=== PATIENT | male | born 1935 | race Caucasian/White ===

== ENCOUNTER → 2018-07-12 | Outpatient (CLI) | payer MEDICARE, OTHER ==
[~2018-07-12] MED LIST: ASPI81EC; CEPH250A PO; GLIP5ER; HYDACE5 PO; HYDURE500 PO; LEVSOD150 PO; LEVSOD25; LISI5 PO; NAPR220 PO; RXCEPH500 PO; TAMS.4ER; TAMS.4ER PO; WARF5 PO
[2018-07-12 18:37] LABS: BASOPHILS ABSOLUTE AUTO 0.06 K/mm3 (0.00-0.23); BASOPHILS PERCENT AUTO 1 % (0-2); EOSINOPHILS ABSOLUTE AUTO 0.15 K/mm3 (0.00-0.68); EOSINOPHILS PERCENT AUTO 2 % (0-6); Hematocrit 48.1 % (37.0-53.0); IMMATURE GRAN ABSOLUTE AUTO 0.05 K/mm3 (0.00-0.10); IMMATURE GRAN PERCENT AUTO 1 % (0-1); LYMPHOCYTES ABSOLUTE AUTO 1.74 K/mm3 (0.84-5.20); LYMPHOCYTES PERCENT AUTO 22 % (21-46); MONOCYTES ABSOLUTE AUTO 0.62 K/mm3 (0.16-1.47); MONOCYTES PERCENT AUTO 8 % (4-13); Mean Corpuscular HGB Conc 33.3 g/dL (31.5-36.5); Mean Corpuscular Volume 111 fL (80-100); Mean Platelet Volume 10.9 fL (9.1-12.4); NEUTROPHILS ABSOLUTE AUTO 5.19 K/mm3 (1.96-9.15); NEUTROPHILS PERCENT AUTO 67 % (41-73); Platelet Count 379 K/mm3 (150-400); RDW Coefficient Variation 14.1 % (11.7-14.2); RDW Standard Deviation 57.6 fL (35.1-46.3); Red Blood Cell Count 4.33 M/mm3 (4.30-5.90); White Blood Cell Count 7.81 K/mm3 (4.00-11.30)
== END | disposition home or self-care (01) ==
LOC: LAB EV 18:32 → LAB SHORT 18:32
PROVIDERS: Physician Assistant
DX: K92.2 Gastrointestinal hemorrhage, unspecified (principal)
CPT/HCPCS: 85025

== ENCOUNTER 2018-08-27 10:58 | Day surgery (SDC) | payer MEDICARE, OTHER ==
[~2018-08-27] VITALS: Ht 188 cm; Wt 96.4 kg
[~2018-08-27 10:58] MED LIST changes: +DORZOPSO; +DORZOPSO BOTHEYES; +Synthroid175 MCG PO; +TIMOPTIC 0.5%1 EACH BOTHEYES; +Xalatan2.5 ML BOTHEYES
[2018-08-27] MEDS ORDERED: WARF4 PO (11:37)
== END 2018-08-27 13:12 | disposition home or self-care (01) ==
LOC: ORSCSDS 10:58
PROVIDERS: Surgery
PROC: 0DJD8ZZ Inspection of Lower Intestinal Tract, Via Natural or Artificial Opening Endoscopic (ICD-10-PCS; principal; 2018-08-27 12:00)
DX: K62.5 Hemorrhage of anus and rectum (principal); K21.9 Gastro-esophageal reflux disease without esophagitis; K64.8 Other hemorrhoids; K57.30 Diverticulosis of large intestine without perforation or abscess without bleeding; E11.9 Type 2 diabetes mellitus without complications; E03.9 Hypothyroidism, unspecified; H40.9 Unspecified glaucoma; D64.9 Anemia, unspecified; Z86.718 Personal history of other venous thrombosis and embolism; Z87.891 Personal history of nicotine dependence; Z79.01 Long term (current) use of anticoagulants; Z79.899 Other long term (current) drug therapy
CPT/HCPCS: J7120

== ENCOUNTER 2018-09-09 03:19 | Day surgery (SDC) | payer MEDICARE, OTHER ==
[~2018-09-09] VITALS: Ht 185.4 cm; Wt 100.0 kg
[~2018-09-09 03:19] MED LIST changes: +WARF4 PO
[2018-09-09 06:35] LABS: BASOPHILS ABSOLUTE AUTO 0.08 K/mm3 (0.00-0.23); BASOPHILS PERCENT AUTO 1 % (0-2); EOSINOPHILS ABSOLUTE AUTO 0.28 K/mm3 (0.00-0.68); EOSINOPHILS PERCENT AUTO 3 % (0-6); Hematocrit 47.6 % (37.0-53.0); Hemoglobin 14.9 g/dL (13.5-17.5); IMMATURE GRAN ABSOLUTE AUTO 0.16 K/mm3 (0.00-0.10); IMMATURE GRAN PERCENT AUTO 2 % (0-1); LYMPHOCYTES ABSOLUTE AUTO 1.39 K/mm3 (0.84-5.20); LYMPHOCYTES PERCENT AUTO 17 % (21-46); MONOCYTES ABSOLUTE AUTO 0.84 K/mm3 (0.16-1.47); MONOCYTES PERCENT AUTO 10 % (4-13); Mean Corpuscular HGB 35.2 pg (26.0-34.0); Mean Corpuscular HGB Conc 31.3 g/dL (31.5-36.5); Mean Corpuscular Volume 113 fL (80-100); Mean Platelet Volume 10.8 fL (9.1-12.4); NEUTROPHILS ABSOLUTE AUTO 5.54 K/mm3 (1.96-9.15); NEUTROPHILS PERCENT AUTO 67 % (41-73); Platelet Count 467 K/mm3 (150-400); RDW Coefficient Variation 14.2 % (11.7-14.2); RDW Standard Deviation 58.6 fL (35.1-46.3); Red Blood Cell Count 4.23 M/mm3 (4.30-5.90); White Blood Cell Count 8.29 K/mm3 (4.00-11.30)
[2018-09-09 06:51] LABS: International Normalized Ratio 2.48; Prothrombin Time Results 24.2 Sec (9.7-11.5)
[2018-09-09 06:52] LABS: Bun/Creatinine Ratio 16.5 (12.0-20.0); Calcium, Blood 8.8 mg/dL (8.5-10.1); Creatinine, Blood 1.39 mg/dL (0.60-1.20); Potassium, Blood 4.2 mmol/L (3.5-5.5)
--- NOTE | 2018-09-09 09:51 | NUR ---
PT AWAKE, ALERT, AT BEDSIDE. ASKING APPROPRIATE QUESTIONS. MD CAME TO SEE PATIENT AFTER PROCEDURE IN RECOVERY AREA. PT DENIES PAIN OR DISCOMFORT. ACCESS SITE BEHIND RIGHT KNEE CDI. NO BLEEDING OR SWELLING NOTED.
--- NOTE | 2018-09-09 09:56 | NUR ---
CORRECTION: ACCESS SITE POSTERIOR LEFT KNEE
--- NOTE | 2018-09-09 11:07 | NUR ---
PT DRESSED, NO BLEED SEEN BEHIND KNEES BILAT. IV DC'D TIP INTACT, PT CHOOSES TO AMB OUT WITH W SON DRIVING PT HOME. DC INSTRUCTIONS GIVEN, PT TO CALL OFFICE IF THEY NEED APPOINTMENT
== END 2018-09-09 11:31 | disposition home or self-care (01) ==
LOC: MHTC 03:19
PROVIDERS: Radiology Diagnostic Radiology
DX: I82.409 Acute embolism and thrombosis of unspecified deep veins of unspecified lower extremity (principal)
CPT/HCPCS: 36005; 75820; 75822; 75825; 76937; 80048; 85025; 85610; 99152; 99153; C1769; C1887; C1894; J1644; J2250; J3010; J7030; Q9967

== ENCOUNTER 2019-08-10 06:57 | Day surgery (SDC) | payer MEDICARE, OTHER ==
[~2019-08-10] VITALS: Ht 182.9 cm; Wt 96.1 kg
== END 2019-08-10 09:12 | disposition home or self-care (01) ==
LOC: ORSCSDS 06:57
PROVIDERS: Ophthalmology
PROC: 08RJ3JZ Replacement of Right Lens with Synthetic Substitute, Percutaneous Approach (ICD-10-PCS; principal; 2019-08-10 08:30)
DX: H25.11 Age-related nuclear cataract, right eye (principal); I48.91 Unspecified atrial fibrillation; E11.36 Type 2 diabetes mellitus with diabetic cataract; Z79.01 Long term (current) use of anticoagulants; Z79.899 Other long term (current) drug therapy
CPT/HCPCS: 82947; J2001; J2250; J3010; J3301; J7040; V2632

== ENCOUNTER 2019-08-31 07:57 | Day surgery (SDC) | payer MEDICARE, OTHER ==
[~2019-08-31] VITALS: Ht 182.9 cm; Wt 97.2 kg
--- NOTE | 2019-08-31 09:41 | NUR ---
08/31/19 0941 Wil Rivera EYE BED, PILLOW UNDER KNEES, RAILS UP.
== END 2019-08-31 10:15 | disposition home or self-care (01) ==
LOC: ORSCSDS 07:57
PROVIDERS: Ophthalmology
PROC: 08RK3JZ Replacement of Left Lens with Synthetic Substitute, Percutaneous Approach (ICD-10-PCS; principal; 2019-08-31 09:30)
DX: H25.12 Age-related nuclear cataract, left eye (principal); E11.36 Type 2 diabetes mellitus with diabetic cataract; G51.0 Bell's palsy; H40.9 Unspecified glaucoma; Z79.899 Other long term (current) drug therapy
CPT/HCPCS: 82947; J2001; J2250; J3301; V2632

== ENCOUNTER 2020-09-26 14:04 | Observation (INO) | payer MEDICARE, OTHER ==
[~2020-09-26] VITALS: Ht 182.9 cm; Wt 92.3 kg
[~2020-09-26 14:04] MED LIST changes: -Synthroid175 MCG PO; -TIMOPTIC 0.5%1 EACH BOTHEYES
[2020-09-26 14:46] LABS: BASOPHILS ABSOLUTE AUTO 0.07 K/mm3 (0.00-0.23); BASOPHILS PERCENT AUTO 1 % (0-2); EOSINOPHILS ABSOLUTE AUTO 0.16 K/mm3 (0.00-0.68); EOSINOPHILS PERCENT AUTO 2 % (0-6); Hematocrit 54.6 % (37.0-53.0); Hemoglobin 17.8 g/dL (13.5-17.5); IMMATURE GRAN ABSOLUTE AUTO 0.07 K/mm3 (0.00-0.10); IMMATURE GRAN PERCENT AUTO 1 % (0-1); LYMPHOCYTES ABSOLUTE AUTO 1.82 K/mm3 (0.84-5.20); LYMPHOCYTES PERCENT AUTO 18 % (21-46); MONOCYTES ABSOLUTE AUTO 0.28 K/mm3 (0.16-1.47); MONOCYTES PERCENT AUTO 3 % (4-13); Mean Corpuscular HGB 35.5 pg (26.0-34.0); Mean Corpuscular HGB Conc 32.6 g/dL (31.5-36.5); Mean Corpuscular Volume 109 fL (80-100); Mean Platelet Volume 11.8 fL (9.1-12.4); NEUTROPHILS ABSOLUTE AUTO 7.69 K/mm3 (1.96-9.15); NEUTROPHILS PERCENT AUTO 76 % (41-73); Platelet Count 513 K/mm3 (150-400); RDW Coefficient Variation 14.7 % (11.7-14.2); RDW Standard Deviation 60.1 fL (35.1-46.3); Red Blood Cell Count 5.01 M/mm3 (4.30-5.90); White Blood Cell Count 10.09 K/mm3 (4.00-11.30)
[2020-09-26] MEDS ORDERED: TAMS.4ER PO (16:03)
[2020-09-26] MEDS ORDERED: BETIMOL5 ML BOTHEYES (16:03)
[2020-09-26] MEDS ORDERED: WARF4 PO (16:03)
[2020-09-26] MEDS ORDERED: EUTHYROX125 MCG PO (16:04)
[2020-09-26] MEDS ORDERED: DORZOLAMIDE 2%10 M3 BOTHEYES (16:04)
[2020-09-26] MEDS ORDERED: HYDURE500 PO (16:06)
[2020-09-26] MEDS ORDERED: Hydroxyurea500 MG PO (16:06)
[2020-09-26] MEDS ORDERED: LATA.005SO BOTHEYES (16:07)
[2020-09-26 16:11] LABS: Albumin, Blood 3.6 g/dL (3.4-5.0); Albumin/Globulin Ratio 0.9 (0.8-1.8); Bilirubin, Total 0.9 mg/dL (0.1-1.0); Bun/Creatinine Ratio 18.6 (12.0-20.0); Calcium, Blood 8.3 mg/dL (8.5-10.1); Creatinine, Blood 1.45 mg/dL (0.60-1.20); Globulin, Blood 4.1 g/dL (2.2-4.0); Potassium, Blood 4.6 mmol/L (3.5-5.5); Total Protein, Blood 7.7 g/dL (6.4-8.2)
[2020-09-26 16:37] LABS: International Normalized Ratio 2.12; Prothrombin Time Results 21.7 Sec (9.7-11.5)
[2020-09-26 17:07] LABS: Source, Urine Clean Catch
[2020-09-26 17:25] LABS: Appearance, Urine Clear (Clear); Bilirubin, Urine Neg (Neg); Blood, Urine Neg (Neg); Color, Urine Yellow (P-Yellow); Glucose Qualitative, Urine Neg (Neg); Ketones, Urine Neg (Neg); Leukocyte Esterase, Urine Neg (Neg); Nitrite, Urine Neg (Neg); Protein, Urine 2+ (Neg); Urobilinogen, Urine NORM (Normal)
[2020-09-26 17:52] LABS: Bacteria Not Seen /hpf; Red Blood Cells, Urine Not Seen /hpf (0-2); Squamous Epithelial Cells Not Seen /hpf (Few); White Blood Cells, Urine Not Seen /hpf (0-5)
--- NOTE | 2020-09-26 18:22 | NUR ---
PT ARRIVED FROM THE ER VIA GURNEY, ABLE TO STAND AND TRANSFER WITH MIN ASSIST TO THE BED, ORIENTED PT TO THE ROOM AND CALL SYSTEM, PT PLEASANT AND COOPERATIVE WITH CARE, NO S/S GI BLEEDING AT THIS TIME
[2020-09-26 20:07] LABS: Hematocrit 48.8 % (37.0-53.0)
[2020-09-27 00:17] LABS: Hemoglobin 15.7 g/dL (13.5-17.5)
[2020-09-27 04:28] LABS: BASOPHILS ABSOLUTE AUTO 0.04 K/mm3 (0.00-0.23); BASOPHILS PERCENT AUTO 0 % (0-2); EOSINOPHILS ABSOLUTE AUTO 0.12 K/mm3 (0.00-0.68); EOSINOPHILS PERCENT AUTO 1 % (0-6); Hematocrit 47.3 % (37.0-53.0); Hemoglobin 15.6 g/dL (13.5-17.5); IMMATURE GRAN ABSOLUTE AUTO 0.12 K/mm3 (0.00-0.10); IMMATURE GRAN PERCENT AUTO 1 % (0-1); LYMPHOCYTES ABSOLUTE AUTO 1.37 K/mm3 (0.84-5.20); LYMPHOCYTES PERCENT AUTO 15 % (21-46); MONOCYTES PERCENT AUTO 8 % (4-13); Mean Corpuscular HGB 35.9 pg (26.0-34.0); Mean Corpuscular Volume 109 fL (80-100); Mean Platelet Volume 11.7 fL (9.1-12.4); NEUTROPHILS ABSOLUTE AUTO 6.54 K/mm3 (1.96-9.15); NEUTROPHILS PERCENT AUTO 74 % (41-73); Platelet Count 362 K/mm3 (150-400); RDW Coefficient Variation 14.7 % (11.7-14.2); RDW Standard Deviation 59.6 fL (35.1-46.3); Red Blood Cell Count 4.34 M/mm3 (4.30-5.90); White Blood Cell Count 8.89 K/mm3 (4.00-11.30)
[2020-09-27 04:42] LABS: Bun/Creatinine Ratio 17.4 (12.0-20.0); Calcium, Blood 7.9 mg/dL (8.5-10.1); Creatinine, Blood 1.32 mg/dL (0.60-1.20); Potassium, Blood 4.5 mmol/L (3.5-5.5)
--- NOTE | 2020-09-27 05:17 | NUR ---
SHIFT SUMMARY: VSS. AFEB. A-FLUTTER W/ PULSE 61. DENIES CHEST PAIN. 02 94% ON RA. REMAINED IN BED. NO SOB AT REST. ABD SOFT, NON-TENDER, NON-DISTENDED. NO BM'S TONIGHT. HAS REMAINED NPO EXCEPT SIPS AND CHIPS TONIGHT. NO N/V. SCHEDULED TO START GO-LYTELY AT 0600. IV ABT INFUSED ORDERED. PT DENIES PAIN. VERY IR[place]QUOIS AND HEARING AID BATTERY HAS . HGB REMAINS STABLE W/ CHECKS. NO DIZZINESS OR LIGHTHEADEDNESS REPORTED AT REST. WCTM.
[2020-09-27 09:37] LABS: Hematocrit 52.1 % (37.0-53.0); Hemoglobin 16.8 g/dL (13.5-17.5)
[2020-09-27 11:29] LABS: Influenza A, PCR NEGATIVE (NEGATIVE); Influenza B, PCR NEGATIVE (NEGATIVE); Resp Syncytial Virus, PCR NEGATIVE (NEGATIVE); SARS-Cov-2 (COVID-19) PCR, MMC NEGATIVE (NEGATIVE)
--- NOTE | 2020-09-27 16:18 | NUR ---
INTO SDS ADMISSION TO UNIT STARTED
--- NOTE | 2020-09-27 16:56 | NUR ---
09/27/20 1656 Rodrigo Méndez PATIENT DETERMINED TO BE ASA APPROPRIATE FOR PROPOFOL SEDATION PRIOR TO START OF PROCEDURE BY DR. DOWNING Bite Block Placed. 3-LEAD EKG REVIEWED WITH PHYSICIAN PRIOR TO START OF PROCEDURE. Patient to ENDO 1 History, Chart, Medications and Allergies reviewed before start of procedure. MONITOR INTACT WITH CONTINUOUS PULSE OXIMETRY AND INTERMITTENT BP. O2 VIA N/C INTACT THROUGHOUT SEDATION/PROCEDURE.
--- NOTE | 2020-09-27 17:22 | NUR ---
SHIFT SUMMARY PT IS AOX4. PT DENIES PAIN, N/V, SOB. PT IS SBA IN ROOM AND DID WELL WITH PT/OT. PT IS CURRENTLY IN HIS EGD AND COLONOSCOPY PROCEDURE. PT HAD ONE EPISODE OF BRADYCARDIA IN THE 45 RANGE, WHICH QUICKLY SELF RESOLVED BACK TO THE 60S PER INSURANCE AGENCY SALES MANAGER. PT'S VISITED TODAY. PT IS IN THE OPERATING ROOM. THIS RN AWAITS PT ARRIVAL BACK TO UNIT.
--- NOTE | 2020-09-28 03:50 | NUR ---
SHIFT SUMMARY: VSS. AFEB. AAOX3. COMMUNICATES WELL W/HEARING AIDS IN PLACE. DENIES PAIN. PT INDEPENDENT IN ROOM. NO REPORTS OF BLACK OR DAMON RED STOOLS TONIGHT. ABD SOFT, NON-TENDER, NON-DISTENDED. BT HYPERACTIVE. DENIES N/V. IV ABT INFUSED PER ORDERS. NO ACUTE OVERNIGHT EVENTS.
[2020-09-28 05:00] LABS: BASOPHILS ABSOLUTE AUTO 0.05 K/mm3 (0.00-0.23); BASOPHILS PERCENT AUTO 1 % (0-2); EOSINOPHILS ABSOLUTE AUTO 0.18 K/mm3 (0.00-0.68); EOSINOPHILS PERCENT AUTO 2 % (0-6); Hematocrit 48.6 % (37.0-53.0); Hemoglobin 15.7 g/dL (13.5-17.5); IMMATURE GRAN PERCENT AUTO 1 % (0-1); LYMPHOCYTES ABSOLUTE AUTO 1.17 K/mm3 (0.84-5.20); LYMPHOCYTES PERCENT AUTO 14 % (21-46); MONOCYTES ABSOLUTE AUTO 0.69 K/mm3 (0.16-1.47); MONOCYTES PERCENT AUTO 8 % (4-13); Mean Corpuscular HGB 35.4 pg (26.0-34.0); Mean Corpuscular HGB Conc 32.3 g/dL (31.5-36.5); Mean Corpuscular Volume 110 fL (80-100); Mean Platelet Volume 11.9 fL (9.1-12.4); NEUTROPHILS ABSOLUTE AUTO 6.24 K/mm3 (1.96-9.15); NEUTROPHILS PERCENT AUTO 74 % (41-73); Platelet Count 344 K/mm3 (150-400); RDW Coefficient Variation 14.9 % (11.7-14.2); RDW Standard Deviation 60.1 fL (35.1-46.3); Red Blood Cell Count 4.43 M/mm3 (4.30-5.90); White Blood Cell Count 8.43 K/mm3 (4.00-11.30)
[2020-09-28 05:20] LABS: International Normalized Ratio 1.78; Prothrombin Time Results 18.4 Sec (9.7-11.5)
[2020-09-28 05:25] LABS: Albumin, Blood 2.7 g/dL (3.4-5.0); Albumin/Globulin Ratio 0.7 (0.8-1.8); Bilirubin, Total 0.7 mg/dL (0.1-1.0); Bun/Creatinine Ratio 15.8 (12.0-20.0); Calcium, Blood 8.1 mg/dL (8.5-10.1); Creatinine, Blood 1.39 mg/dL (0.60-1.20); Globulin, Blood 3.8 g/dL (2.2-4.0); Phosphorus, Blood 2.6 mg/dL (2.5-4.9); Potassium, Blood 4.7 mmol/L (3.5-5.5); Total Protein, Blood 6.5 g/dL (6.4-8.2)
[2020-09-28] MEDS ORDERED: AMOCLA875 PO (12:02)
[2020-09-28] MEDS ORDERED: PANT40 (12:03)
--- NOTE | 2020-09-28 13:00 | NUR ---
DISCHARGE SUMMARY PT DISCHARGED TO HOME. PT LEFT ROOM VIA WHEELCHAIR WITH PRINT INSPECTOR STUDENT JUST PRIOR TO THIS NOTE. IV DC'D AND BELONGINGS RETURNED. PT AGREES TO OIL PIPE INSPECTOR MEDICATIONS FROM PHARMACY.
--- NOTE | 2020-09-28 17:14 | NUR ---
ADMIT: 09/26/20 DISCHARGE: 09.28.20 DX: GIB CC: [email or web address] RAINA CALL: Call [facility] at home for raina, 1 week with Marcellus rouse RESIDENCE: home, lives with , she has dementia. CAREGIVER:self DX:afib, htn, ckd 3 chf see list DME: walks safely on his own, test strips for glucometer CCM: none HOME HEALTH:none, not home bound SUMMARY: Admit 09/26/20 09/28/20 Discharge home, family to pick him up, no new meds he states, reviewed discharge checklist. No Care needs identified. Says he walks safely on his own, Cares for his with dementia. Discussed raina call on Thursday or Thursday from [facility]. Expect follow up appointment for 1 week to be scheduled. 1: GIB (gastrointestinal bleeding) A/P: Melena and BRBPR x1 day. H&H stable but has a history of GIB requiring transfusion.
== END 2020-09-28 12:55 | disposition home or self-care (01) ==
LOC: ER 14:04 → ERHOLD 14:05 → MEDS 14:05 → ENPENDDIS 09-28 11:59 → MEDS 09-28 12:55
PROVIDERS: Hospitalist; Internal Medicine Gastroenterology; Nurse Practitioner Acute Care; Physician Assistant; ADMIT Internal Medicine
PROC: 0DBK8ZX Excision of Ascending Colon, Via Natural or Artificial Opening Endoscopic, Diagnostic (ICD-10-PCS; principal; 2020-09-27 15:00)
PROC: 0DJ08ZZ Inspection of Upper Intestinal Tract, Via Natural or Artificial Opening Endoscopic (ICD-10-PCS; principal; 2020-09-27 15:00)
DX: K57.92 Diverticulitis of intestine, part unspecified, without perforation or abscess without bleeding (principal); D12.2 Benign neoplasm of ascending colon; K64.8 Other hemorrhoids; M47.819 Spondylosis without myelopathy or radiculopathy, site unspecified; M48.00 Spinal stenosis, site unspecified; D47.3 Essential (hemorrhagic) thrombocythemia; I82.403 Acute embolism and thrombosis of unspecified deep veins of lower extremity, bilateral; I48.92 Unspecified atrial flutter; H40.9 Unspecified glaucoma; E11.22 Type 2 diabetes mellitus with diabetic chronic kidney disease; I12.9 Hypertensive chronic kidney disease with stage 1 through stage 4 chronic kidney disease, or unspecified chronic kidney disease; N18.30 Chronic kidney disease, stage 3 unspecified; E03.9 Hypothyroidism, unspecified; Z87.891 Personal history of nicotine dependence; Z79.01 Long term (current) use of anticoagulants
CPT/HCPCS: 0241U; 36415; 71046; 74176; 80048; 80053; 81001; 82272; 83605; 83735; 84100; 84145; 85014; 85018; 85025; 85610; 86850; 86900; 86901; 87040; 88305; 93005; 93010; 96365; 96366; 96375; 96376; 97116; 97162; 97165; 97535; 99285-25; A9270; C9113; G0378; J2405; J2543; J2704; J7030; J7120

== ENCOUNTER 2020-11-17 03:05 | Emergency (ER) | payer MEDICARE, OTHER ==
[~2020-11-17] VITALS: Ht 182.9 cm; Wt 94.3 kg
[~2020-11-17 03:05] MED LIST changes: +AMOCLA875 PO; +BETIMOL5 ML BOTHEYES; +DORZOLAMIDE 2%10 M3 BOTHEYES; +EUTHYROX125 MCG PO; +Hydroxyurea500 MG PO; +LATA.005SO BOTHEYES; +PANT40
[2020-11-17 03:47] LABS: BASOPHILS ABSOLUTE AUTO 0.08 K/mm3 (0.00-0.23); BASOPHILS PERCENT AUTO 1 % (0-2); EOSINOPHILS ABSOLUTE AUTO 0.26 K/mm3 (0.00-0.68); EOSINOPHILS PERCENT AUTO 3 % (0-6); Hematocrit 50.5 % (37.0-53.0); Hemoglobin 16.7 g/dL (13.5-17.5); IMMATURE GRAN ABSOLUTE AUTO 0.06 K/mm3 (0.00-0.10); IMMATURE GRAN PERCENT AUTO 1 % (0-1); LYMPHOCYTES ABSOLUTE AUTO 1.56 K/mm3 (0.84-5.20); LYMPHOCYTES PERCENT AUTO 16 % (21-46); MONOCYTES ABSOLUTE AUTO 0.63 K/mm3 (0.16-1.47); MONOCYTES PERCENT AUTO 7 % (4-13); Mean Corpuscular HGB 35.5 pg (26.0-34.0); Mean Corpuscular HGB Conc 33.1 g/dL (31.5-36.5); Mean Corpuscular Volume 107 fL (80-100); Mean Platelet Volume 11.4 fL (9.1-12.4); NEUTROPHILS ABSOLUTE AUTO 6.99 K/mm3 (1.96-9.15); NEUTROPHILS PERCENT AUTO 73 % (41-73); Platelet Count 427 K/mm3 (150-400); RDW Coefficient Variation 14.4 % (11.7-14.2); RDW Standard Deviation 57.1 fL (35.1-46.3); White Blood Cell Count 9.58 K/mm3 (4.00-11.30)
[2020-11-17 04:01] LABS: International Normalized Ratio 2.25; Prothrombin Time Results 23.2 Sec (9.7-11.5)
[2020-11-17 04:10] LABS: Alanine Aminotransfer (ALT/SGP 16 U/L (12-78); Albumin, Blood 3.6 g/dL (3.4-5.0); Albumin/Globulin Ratio 0.9 (0.8-1.8); Alk Phos 100 U/L (50-136); Anion Gap 5 mmol/L (6-16); Aspartate Aminotrans (AST/SGOT 24 U/L (12-37); Bilirubin, Total 0.7 mg/dL (0.1-1.0); Blood Urea Nitrogen 30 mg/dL (8-24); Bun/Creatinine Ratio 22.2 (12.0-20.0); CO2, Blood 24 mmol/L (21-32); Calcium, Blood 8.4 mg/dL (8.5-10.1); Chloride, Blood 109 mmol/L (98-108); Creatinine, Blood 1.35 mg/dL (0.60-1.20); Globulin, Blood 4.1 g/dL (2.2-4.0); Glomerular Filtration Rate 53 (60-); Glucose, Blood 125 mg/dL (70-99); Potassium, Blood 4.1 mmol/L (3.5-5.5); Sodium, Blood 138 mmol/L (136-145); Total Protein, Blood 7.7 g/dL (6.4-8.2); Troponin I <0.015 ng/mL (0.000-0.040)
== END 2020-11-17 07:55 | disposition home or self-care (01) ==
LOC: ER 03:05
PROVIDERS: Emergency Medicine
DX: M79.81 Nontraumatic hematoma of soft tissue (principal); Z79.01 Long term (current) use of anticoagulants; Z79.899 Other long term (current) drug therapy; Z86.718 Personal history of other venous thrombosis and embolism; Z87.891 Personal history of nicotine dependence
CPT/HCPCS: 80053; 83880; 84484; 85025; 85610; 93005; 93010; 93971; 99285-25; J2270; J2405

== ENCOUNTER 2021-06-11 09:27 | Emergency (ER) | payer MEDICARE, OTHER ==
[~2021-06-11] VITALS: Ht 182.9 cm; Wt 94.8 kg
[2021-06-11 10:08] LABS: BASOPHILS ABSOLUTE AUTO 0.08 K/mm3 (0.00-0.23); BASOPHILS PERCENT AUTO 1 % (0-2); EOSINOPHILS PERCENT AUTO 2 % (0-6); Hemoglobin 18.2 g/dL (13.5-17.5); IMMATURE GRAN ABSOLUTE AUTO 0.09 K/mm3 (0.00-0.10); IMMATURE GRAN PERCENT AUTO 1 % (0-1); LYMPHOCYTES ABSOLUTE AUTO 1.37 K/mm3 (0.84-5.20); LYMPHOCYTES PERCENT AUTO 14 % (21-46); MONOCYTES PERCENT AUTO 7 % (4-13); Mean Corpuscular HGB 35.5 pg (26.0-34.0); Mean Corpuscular HGB Conc 32.8 g/dL (31.5-36.5); Mean Corpuscular Volume 108 fL (80-100); Mean Platelet Volume 10.9 fL (9.1-12.4); NEUTROPHILS ABSOLUTE AUTO 7.62 K/mm3 (1.96-9.15); NEUTROPHILS PERCENT AUTO 76 % (41-73); Platelet Count 397 K/mm3 (150-400); RDW Coefficient Variation 15.7 % (11.7-14.2); RDW Standard Deviation 63.8 fL (35.1-46.3); Red Blood Cell Count 5.12 M/mm3 (4.30-5.90); White Blood Cell Count 10.06 K/mm3 (4.00-11.30)
[2021-06-11 10:19] LABS: Hematocrit 55.5 % (37.0-53.0)
[2021-06-11] MEDS ORDERED: FURO40 PO (10:33)
[2021-06-11] MEDS ORDERED: METO25ER PO (10:33)
[2021-06-11] MEDS ORDERED: SERT25 PO (10:34)
[2021-06-11] MEDS ORDERED: Lisinopril2.5 MG PO (10:34)
[2021-06-11 10:50] LABS: International Normalized Ratio 3.54; Prothrombin Time Results 34.2 Sec (9.7-11.5)
== END 2021-06-11 11:06 | disposition home or self-care (01) ==
LOC: ER 09:27
PROVIDERS: Emergency Medicine
DX: R04.0 Epistaxis (principal); D68.32 Hemorrhagic disorder due to extrinsic circulating anticoagulants; T45.515A Adverse effect of anticoagulants, initial encounter; I48.92 Unspecified atrial flutter; E03.9 Hypothyroidism, unspecified; Z79.01 Long term (current) use of anticoagulants; Z79.899 Other long term (current) drug therapy; Z87.891 Personal history of nicotine dependence
CPT/HCPCS: 30901; 36415; 85025; 85610; 99283

== ENCOUNTER → 2021-09-10 | Outpatient (CLI) | payer MEDICARE, OTHER ==
[~2021-09-10] MED LIST changes: +FURO40 PO; +Lisinopril2.5 MG PO; +METO25ER PO; +SERT25 PO
[2021-09-10 11:09] LABS: Prothrombin Time Results 17.2 Sec (9.7-11.5)
== END | disposition home or self-care (01) ==
LOC: LAB 10:28 → LAB SHORT 10:28
PROVIDERS: Physician Assistant
DX: I48.91 Unspecified atrial fibrillation (principal)
CPT/HCPCS: 85610

== ENCOUNTER → 2021-12-31 | Outpatient (CLI) | payer MEDICARE, OTHER | LOC: PLD 13:56 → LAB SHORT 13:56 | DX: D48.5 Neoplasm of uncertain behavior of skin (principal) | CPT/HCPCS: 88341; 88342 ==

== ENCOUNTER → 2022-02-11 | Outpatient (CLI) | payer MEDICARE, OTHER ==
[2022-02-11 13:07] LABS: BASOPHILS PERCENT AUTO 1 % (0-2); EOSINOPHILS ABSOLUTE AUTO 0.17 K/mm3 (0.00-0.68); EOSINOPHILS PERCENT AUTO 2 % (0-6); Hemoglobin 19.8 g/dL (13.5-17.5); IMMATURE GRAN ABSOLUTE AUTO 0.13 K/mm3 (0.00-0.10); IMMATURE GRAN PERCENT AUTO 1 % (0-1); LYMPHOCYTES ABSOLUTE AUTO 1.66 K/mm3 (0.84-5.20); LYMPHOCYTES PERCENT AUTO 14 % (21-46); MONOCYTES ABSOLUTE AUTO 0.89 K/mm3 (0.16-1.47); MONOCYTES PERCENT AUTO 8 % (4-13); Mean Corpuscular HGB 34.3 pg (26.0-34.0); Mean Corpuscular HGB Conc 33.5 g/dL (31.5-36.5); Mean Corpuscular Volume 102 fL (80-100); Mean Platelet Volume 11.6 fL (9.1-12.4); NEUTROPHILS ABSOLUTE AUTO 8.72 K/mm3 (1.96-9.15); NEUTROPHILS PERCENT AUTO 75 % (41-73); Platelet Count 382 K/mm3 (150-400); RDW Coefficient Variation 17.7 % (11.7-14.2); RDW Standard Deviation 61.6 fL (35.1-46.3); Red Blood Cell Count 5.78 M/mm3 (4.30-5.90); White Blood Cell Count 11.67 K/mm3 (4.00-11.30)
[2022-02-11 13:16] LABS: Albumin, Blood 3.1 g/dL (3.4-5.0); Albumin/Globulin Ratio 0.6 (0.8-1.8); Bilirubin, Total 0.9 mg/dL (0.1-1.0); Bun/Creatinine Ratio 16.6 (12.0-20.0); Calcium, Blood 8.4 mg/dL (8.5-10.1); Creatinine, Blood 1.63 mg/dL (0.60-1.20); Globulin, Blood 4.9 g/dL (2.2-4.0); Potassium, Blood 4.3 mmol/L (3.5-5.5)
[2022-02-11 13:41] LABS: Hematocrit 59.1 % (37.0-53.0)
== END | disposition home or self-care (01) ==
LOC: LAB 12:58 → LAB SHORT 12:58
PROVIDERS: Family Medicine
DX: K92.1 Melena (principal)
CPT/HCPCS: 80053; 85025

== ENCOUNTER 2022-09-22 19:06 | Emergency (ER) | payer MEDICARE, OTHER ==
[~2022-09-22] VITALS: Ht 188 cm; Wt 99.8 kg
[2022-09-22 20:37] LABS: BASOPHILS ABSOLUTE AUTO 0.11 K/mm3 (0.00-0.23); BASOPHILS PERCENT AUTO 1 % (0-2); EOSINOPHILS ABSOLUTE AUTO 0.14 K/mm3 (0.00-0.68); EOSINOPHILS PERCENT AUTO 1 % (0-6); Hemoglobin 21.5 g/dL (13.5-17.5); IMMATURE GRAN ABSOLUTE AUTO 0.11 K/mm3 (0.00-0.10); IMMATURE GRAN PERCENT AUTO 1 % (0-1); LYMPHOCYTES ABSOLUTE AUTO 1.02 K/mm3 (0.84-5.20); LYMPHOCYTES PERCENT AUTO 7 % (21-46); MONOCYTES ABSOLUTE AUTO 0.85 K/mm3 (0.16-1.47); MONOCYTES PERCENT AUTO 6 % (4-13); Mean Corpuscular HGB 35.8 pg (26.0-34.0); Mean Corpuscular HGB Conc 33.8 g/dL (31.5-36.5); Mean Corpuscular Volume 106 fL (80-100); Mean Platelet Volume 11.4 fL (9.1-12.4); NEUTROPHILS ABSOLUTE AUTO 11.58 K/mm3 (1.96-9.15); NEUTROPHILS PERCENT AUTO 84 % (41-73); Platelet Count 488 K/mm3 (150-400); RDW Coefficient Variation 14.8 % (11.7-14.2); RDW Standard Deviation 58.4 fL (35.1-46.3); White Blood Cell Count 13.81 K/mm3 (4.00-11.30)
[2022-09-22 20:57] LABS: Albumin, Blood 3.9 g/dL (3.4-5.0); Albumin/Globulin Ratio 0.8 (0.8-1.8); Bilirubin, Total 0.8 mg/dL (0.1-1.0); Bun/Creatinine Ratio 24.6 (12.0-20.0); Calcium, Blood 9.4 mg/dL (8.5-10.1); Creatinine, Blood 1.71 mg/dL (0.60-1.20); Globulin, Blood 4.9 g/dL (2.2-4.0); Total Protein, Blood 8.8 g/dL (6.4-8.2)
[2022-09-22 21:03] LABS: Influenza A, PCR NEGATIVE (NEGATIVE); Influenza B, PCR NEGATIVE (NEGATIVE); Resp Syncytial Virus, PCR NEGATIVE (NEGATIVE); SARS-Cov-2 (COVID-19) PCR, MMC NEGATIVE (NEGATIVE)
[2022-09-22 21:26] LABS: Hematocrit 63.6 % (37.0-53.0)
[2022-09-22 22:04] LABS: Source, Urine Clean Catch
[2022-09-22 22:06] LABS: Bilirubin, Urine Neg (Neg); Blood, Urine Neg (Neg); Glucose Qualitative, Urine Neg (Neg); Ketones, Urine Neg (Neg); Leukocyte Esterase, Urine Neg (Neg); Nitrite, Urine Neg (Neg); Protein, Urine 2+ (Neg); Urobilinogen, Urine NORM (Normal)
[2022-09-22 22:23] LABS: Appearance, Urine Hazy (Clear); Color, Urine Yellow (P-Yellow)
[2022-09-22 22:25] LABS: Bacteria Rare /hpf; Red Blood Cells, Urine 0-2 /hpf (0-2); Squamous Epithelial Cells Mod /hpf (Few); White Blood Cells, Urine 0-2 /hpf (0-5)
[2022-09-22 22:26] LABS: Mucus Light (0-Heavy)
[2022-09-22] MEDS ORDERED: HYDR1TAB94 PO (23:40)
== END 2022-09-23 00:55 | disposition home or self-care (01) ==
LOC: ER 19:06
PROVIDERS: Student in an Organized Health Care Education/Training Program
DX: M54.50 Low back pain, unspecified (principal); D75.1 Secondary polycythemia; Z79.899 Other long term (current) drug therapy; Z79.01 Long term (current) use of anticoagulants; I48.92 Unspecified atrial flutter; E03.9 Hypothyroidism, unspecified; Z87.891 Personal history of nicotine dependence; Z20.822 Contact with and (suspected) exposure to COVID-19
CPT/HCPCS: 0241U; 36415; 71046; 80053; 81001; 83690; 83880; 84484; 85025; 93005; 93010; 96361; 96374; 96375; 99284-25; A9270; J2405; J3010; J7030

== ENCOUNTER 2022-11-12 12:14 | Inpatient (IN) | payer MEDICARE, OTHER ==
[~2022-11-12] VITALS: Ht 182.9 cm; Wt 97.1 kg
[~2022-11-12 12:14] MED LIST changes: +HYDR1TAB94 PO; +LIDO700A20 TOP
[2022-11-12 12:55] LABS: BASOPHILS ABSOLUTE AUTO 0.05 K/mm3 (0.00-0.23); BASOPHILS PERCENT AUTO 1 % (0-2); EOSINOPHILS ABSOLUTE AUTO 0.22 K/mm3 (0.00-0.68); EOSINOPHILS PERCENT AUTO 3 % (0-6); Hematocrit 40.9 % (37.0-53.0); Hemoglobin 13.1 g/dL (13.5-17.5); IMMATURE GRAN PERCENT AUTO 1 % (0-1); LYMPHOCYTES ABSOLUTE AUTO 1.37 K/mm3 (0.84-5.20); LYMPHOCYTES PERCENT AUTO 16 % (21-46); MONOCYTES ABSOLUTE AUTO 0.46 K/mm3 (0.16-1.47); MONOCYTES PERCENT AUTO 6 % (4-13); Mean Corpuscular HGB 35.6 pg (26.0-34.0); Mean Corpuscular Volume 111 fL (80-100); Mean Platelet Volume 11.6 fL (9.1-12.4); NEUTROPHILS ABSOLUTE AUTO 6.22 K/mm3 (1.96-9.15); NEUTROPHILS PERCENT AUTO 74 % (41-73); Platelet Count 255 K/mm3 (150-400); RDW Coefficient Variation 15.4 % (11.7-14.2); RDW Standard Deviation 63.1 fL (35.1-46.3); Red Blood Cell Count 3.68 M/mm3 (4.30-5.90); White Blood Cell Count 8.42 K/mm3 (4.00-11.30)
[2022-11-12 14:23] LABS: International Normalized Ratio 1.36
[2022-11-12 14:30] LABS: Albumin, Blood 3.4 g/dL (3.4-5.0); Albumin/Globulin Ratio 0.7 (0.8-1.8); Bilirubin, Total 0.8 mg/dL (0.1-1.0); Bun/Creatinine Ratio 17.7 (12.0-20.0); Calcium, Blood 8.7 mg/dL (8.5-10.1); Creatinine, Blood 1.75 mg/dL (0.60-1.20); Magnesium, Blood 2.7 mg/dL (1.6-2.4); Potassium, Blood 5.9 mmol/L (3.5-5.5); Total Protein, Blood 8.4 g/dL (6.4-8.2)
[2022-11-12] MEDS ORDERED: OXYC5 PO (16:20)
[2022-11-12] MEDS ORDERED: DOCUZEN 8.6-501 EACH PO (16:21)
[2022-11-12] MEDS ORDERED: GABA100 PO (16:57)
[2022-11-12] MEDS ORDERED: Neurontin300 MG PO (16:58)
[2022-11-12 17:09] VITALS: BP 137/65
[2022-11-12 20:16] VITALS: BP 139/73
[2022-11-12 23:27] VITALS: BP 135/76
[2022-11-13 02:46] VITALS: BP 150/85
[2022-11-13 05:46] LABS: International Normalized Ratio 1.44; Prothrombin Time Results 14.8 Sec (9.7-11.5)
--- NOTE | 2022-11-13 05:52 | NUR ---
SHIFT SUMMARY: Uneventful shift. Heart rhythm has been Atrial flutter with a slow rate in the 40s-60s. HR in the 60s with activity, as low as 48 at rest. BP stable. Remains on room air, lungs clear. No episodes of diziness or syncope. Ambulates to bathroom with supervision, steady gait.
[2022-11-13 07:15] VITALS: BP 136/72
[2022-11-13 07:40] LABS: Albumin, Blood 3.2 g/dL (3.4-5.0); Anion Gap 4 mmol/L (6-16); Blood Urea Nitrogen 32 mg/dL (8-24); Bun/Creatinine Ratio 18.8 (12.0-20.0); CO2, Blood 26 mmol/L (21-32); Calcium, Blood 8.5 mg/dL (8.5-10.1); Chloride, Blood 103 mmol/L (98-108); Glomerular Filtration Rate 38 (60-); Glucose, Blood 120 mg/dL (70-99); Phosphorus, Blood 3.7 mg/dL (2.5-4.9); Potassium, Blood 4.6 mmol/L (3.5-5.5); Sodium, Blood 133 mmol/L (136-145)
[2022-11-13 11:45] VITALS: BP 141/79
[2022-11-13 15:51] VITALS: BP 168/80
--- NOTE | 2022-11-13 18:08 | NUR ---
SHIFT SUMMARY; ASSUMED CARE AT 0700, A/A/OX4. PLEASANT AND COOPERATIVE WITH CARE. REPOSITIONS SELF, SBA TO RESTROOM. USES CALL LIGHT AND MAKES NEEDS KNOWN. BED ALARM SET FOR ADDITIONAL SAFTEY. HR 48-50 DURING SHIFT, BLOOD PRESSURE STABLE. NO ACUTE CHANGES, WILL CONTINUE TO MONITOR AND TREAT UNTIL CHANGE OF SHIFT.
[2022-11-13 20:32] VITALS: BP 131/68
[2022-11-14 00:19] VITALS: BP 143/95
[2022-11-14 03:37] VITALS: BP 162/77
[2022-11-14 04:33] LABS: International Normalized Ratio 1.41; Prothrombin Time Results 14.5 Sec (9.7-11.5)
--- NOTE | 2022-11-14 04:55 | NUR ---
VSS, AFEBRILE, UP TO BATHROOM, USES CALL LIGHT APPROPRIATELY, NO ISSUES OVERNIGHT
[2022-11-14 07:41] VITALS: BP 142/87
[2022-11-14 13:58] VITALS: BP 117/68
[2022-11-14 17:57] VITALS: BP 129/93
--- NOTE | 2022-11-14 18:34 | NUR ---
SHIFT SUMMARY OVERALL AN UNEVENTFUL SHIFT. PT A/O X4. PLEASANT AND COOPERATIVE WITH CARE. PT USES CALL LIGHT APPROPRIATELY. HR REMAINED 40-60'S, IN ATRIAL FLUTTER. BP IS STABLE. PT IS ASYMPTOMATIC. SPO2 >92% ON RA. RESPIRATIONS EVEN AND UNLABORED. PT WAS ABLE TO AMBULATE TO BATHROOM WITH JUST STANDBY ASSIST. HE WORKED WITH PT AND OT TODAY AND TOLERATED WELL. BOTH REPORTED THAT PT DID GREAT. PLAN IS TO CONTINUE TO MONITOR PT AND WAIT FOR ATENOLOL TO CLEAR. PT HAD VISITORS AT BEDSIDE THIS AFTERNOON. WILL CONTINUE TO CARE FOR PT AND REPORT TO ONCOMING RN.
[2022-11-14 20:17] VITALS: BP 155/77
[2022-11-15 03:45] VITALS: BP 149/71
[2022-11-15 04:02] LABS: BASOPHILS ABSOLUTE AUTO 0.09 K/mm3 (0.00-0.23); BASOPHILS PERCENT AUTO 1 % (0-2); EOSINOPHILS ABSOLUTE AUTO 0.26 K/mm3 (0.00-0.68); EOSINOPHILS PERCENT AUTO 3 % (0-6); Hemoglobin 18.4 g/dL (13.5-17.5); IMMATURE GRAN ABSOLUTE AUTO 0.08 K/mm3 (0.00-0.10); IMMATURE GRAN PERCENT AUTO 1 % (0-1); LYMPHOCYTES ABSOLUTE AUTO 2.02 K/mm3 (0.84-5.20); LYMPHOCYTES PERCENT AUTO 19 % (21-46); MONOCYTES ABSOLUTE AUTO 0.53 K/mm3 (0.16-1.47); MONOCYTES PERCENT AUTO 5 % (4-13); Mean Corpuscular HGB 34.8 pg (26.0-34.0); Mean Corpuscular HGB Conc 33.2 g/dL (31.5-36.5); NEUTROPHILS ABSOLUTE AUTO 7.57 K/mm3 (1.96-9.15); NEUTROPHILS PERCENT AUTO 72 % (41-73); Platelet Count 390 K/mm3 (150-400); RDW Standard Deviation 57.6 fL (35.1-46.3); Red Blood Cell Count 5.28 M/mm3 (4.30-5.90); White Blood Cell Count 10.55 K/mm3 (4.00-11.30)
[2022-11-15 04:12] LABS: Hematocrit 55.4 % (37.0-53.0); Mean Corpuscular Volume 105 fL (80-100)
[2022-11-15 04:27] LABS: Albumin, Blood 3.2 g/dL (3.4-5.0); Anion Gap 4 mmol/L (6-16); Blood Urea Nitrogen 35 mg/dL (8-24); Bun/Creatinine Ratio 20.2 (12.0-20.0); CO2, Blood 27 mmol/L (21-32); Calcium, Blood 8.6 mg/dL (8.5-10.1); Chloride, Blood 102 mmol/L (98-108); Creatinine, Blood 1.73 mg/dL (0.60-1.20); Glomerular Filtration Rate 38 (60-); Glucose, Blood 116 mg/dL (70-99); Phosphorus, Blood 3.5 mg/dL (2.5-4.9); Potassium, Blood 4.3 mmol/L (3.5-5.5); Sodium, Blood 133 mmol/L (136-145)
[2022-11-15 05:28] LABS: International Normalized Ratio 1.32; Prothrombin Time Results 13.6 Sec (9.7-11.5)
--- NOTE | 2022-11-15 06:17 | NUR ---
PT RESTED WELL OVERNIGHT, NO PRNS, NO ISSUES, HR 40'S-60'S
[2022-11-15 08:28] VITALS: BP 130/69
[2022-11-15 11:01] VITALS: BP 137/65
--- NOTE | 2022-11-15 12:53 | NUR ---
DISCHARGE NOTE PT A&O X4. VSS. SPO2> 92% ON RA. AFLUTTER HR 40'S-70'S. PT DENIED CP OR SOB. PT D/C'D HOME PER ORDERS. PT PROVIDED WITH D/C PAPERWORK. IV D/C'D. PT WHEELED OUT IN WHEELCHAIR @ APPROX 1230.
== END 2022-11-15 12:30 | disposition home health service (06) | DRG 309 ==
LOC: ER 12:14 → ERHOLD 15:16 → PCU 15:16
PROVIDERS: Emergency Medicine; ADMIT Family Medicine
DX: R00.1 Bradycardia, unspecified (principal); I13.0 Hypertensive heart and chronic kidney disease with heart failure and stage 1 through stage 4 chronic kidney disease, or unspecified chronic kidney disease; I50.20 Unspecified systolic (congestive) heart failure; I48.92 Unspecified atrial flutter; I48.91 Unspecified atrial fibrillation; E03.9 Hypothyroidism, unspecified; Z66 Do not resuscitate; R79.1 Abnormal coagulation profile; T44.7X5A Adverse effect of beta-adrenoreceptor antagonists, initial encounter; R55 Syncope and collapse; N18.30 Chronic kidney disease, stage 3 unspecified; H91.90 Unspecified hearing loss, unspecified ear; H40.9 Unspecified glaucoma; Z98.890 Other specified postprocedural states; Z87.19 Personal history of other diseases of the digestive system; Z86.718 Personal history of other venous thrombosis and embolism; Z85.6 Personal history of leukemia; Z98.49 Cataract extraction status, unspecified eye; Z96.653 Presence of artificial knee joint, bilateral; Z87.891 Personal history of nicotine dependence; Z79.899 Other long term (current) drug therapy; Z79.01 Long term (current) use of anticoagulants; Z79.891 Long term (current) use of opiate analgesic
CPT/HCPCS: 36415; 80053; 80069; 83735; 83880; 84132; 84484; 85025; 85610; 93005; 93010; 97110; 97112; 97161; 97165; 97530; 99285-25; A9270

== ENCOUNTER 2023-01-05 06:26 | Day surgery (SDC) | payer MEDICARE, OTHER ==
[~2023-01-05] VITALS: Ht 185.4 cm; Wt 102.0 kg
[~2023-01-05 06:26] MED LIST changes: +DOCUZEN 8.6-501 EACH PO; +GABA100 PO; +Neurontin300 MG PO; +OXYC5 PO
[2023-01-05 07:06] VITALS: BP 162/82
[2023-01-05] MEDS ORDERED: METO25ER PO (07:06)
[2023-01-05] MEDS ORDERED: TIMO.25OPS BOTHEYES (07:06)
[2023-01-05 12:13] VITALS: BP 144/80
--- NOTE | 2023-01-05 13:02 | NUR ---
Patient arrived via gurney post pacer on monitor and staff. Received report and site assessed. Site has clear op site with small amount of gauze uder and no bleeding or hematoma, Patient is alert and oriented and was able to communicate his needs. He Denied any pain. We sat him up and he ate late breakfast 100%. Family at bedside. Patient is intermitently paced in the 60 and or non paced rate 61-85. He is on RA and sats >90%.
[2023-01-05 15:17] VITALS: BP 153/84
--- NOTE | 2023-01-05 15:22 | NUR ---
Patient has been resting and awoke easily to verbal stimuli. he is on RA and sats >90%. Educated on max movement of left arm post pacer and h e stated that he remembers what he was told [facility]. Rconciled meds and placed orders per Dr Yanez. Left chest site WNL and no swelling or bleeding. Patient remains alert and oriented and is able to communicate needs and use call light appropraitely. He denies any need for pain intervention.
[2023-01-05 19:38] VITALS: BP 152/81
--- NOTE | 2023-01-05 19:39 | NUR ---
ASSUMED PT CARE FROM DANNA RN ON HI. PT RESTING IN BED WITH EYES CLOSED, WAKES TO NOISE. A&OX4 WITH SOME LITTLE TRAVERSE. ABLE TO ANSWER QUESTIONS AND FOLLOW DIRECTIONS WELL. DENIES ANY SOB, CHEST PAIN, PRESSURE, OR NAUSEA AT THIS TIME. DRESSING ON LEFT SHOULDER C/D/I, NO DRAINAGE NOTED. PT REMINDED NOT TO MOVE SHOULDER. ASSISTED PT TO REPOSITION FOR COMFORT. HR PACED AT 60 BPM. BP STABLE. O2 SATS 96% ON RA. FRESH WATER PROVIDED AT PT REQUEST. DENIES NEEDS AT THIS TIME. CALL LIGHT IN REACH. BED ALARM ON.
[2023-01-05 23:36] VITALS: BP 134/83
[2023-01-06 04:16] VITALS: BP 131/85
[2023-01-06 08:54] VITALS: BP 142/77
[2023-01-06] MEDS ORDERED: CEPH500 PO (08:56)
--- NOTE | 2023-01-06 11:01 | NUR ---
Upon receiving a referral for spiritual care, I visited the patient. He tells me about his SOB and his exhaustion from walking a few feet. He speaks briefly of his medical issues. He then talks at length about his family, his life [place] 3 y/o to present (83 yrs) and about his religion experience. 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 He explains about how he relies on GOd for wisdom and direction. I reinforce helpful attitudes and perspectives, encourage self-care and provide therapeutic listening. Patient responded well and showed signs of an elevated mood.
--- NOTE | 2023-01-06 11:17 | NUR ---
PT AND FAMILY EXPRESSED UNDERSTANDING OF PACEMAKER D/C TEACHING AND FOLLOW UP. PT WILL BE SEEN BY DR RIVAS TOMORROW HE PLANS TO CONSULT WITH DR RIVAS IF NEEDED TOMORROW ABOUT BEING OFF OF BLOOD THINNER FOR 10 ADDITIONAL DAYS HE IS CONCERNED ABOUT BEING OFF OF IT UNTIL SEEING DR WICK ON 01/16, PT IS ENCOURAGED TO FOLLOW UP WITH DR RIVAS. IV REMOVED AND PRESSURE DRESSED
== END 2023-01-06 10:58 | disposition home or self-care (01) ==
LOC: MHTC 06:26 → PCU 09:59 → MHTC 01-06 10:58
DX: I48.21 Permanent atrial fibrillation (principal); I45.9 Conduction disorder, unspecified; I34.0 Nonrheumatic mitral (valve) insufficiency; I44.2 Atrioventricular block, complete; C61 Malignant neoplasm of prostate; I50.9 Heart failure, unspecified; I13.0 Hypertensive heart and chronic kidney disease with heart failure and stage 1 through stage 4 chronic kidney disease, or unspecified chronic kidney disease; E03.9 Hypothyroidism, unspecified; E11.22 Type 2 diabetes mellitus with diabetic chronic kidney disease; E11.42 Type 2 diabetes mellitus with diabetic polyneuropathy; N18.30 Chronic kidney disease, stage 3 unspecified; E11.51 Type 2 diabetes mellitus with diabetic peripheral angiopathy without gangrene
CPT/HCPCS: 33207; 71045; 71046; 76937; 99152; 99153; A9270; C1781; C1786; C1894; C1898; J0690; J1644; J2250; J3010; J7030; J7040

== ENCOUNTER → 2023-01-07 | Outpatient (CLI) | payer MEDICARE, OTHER ==
[~2023-01-07] MED LIST changes: +CEPH500 PO; +TIMO.25OPS BOTHEYES
[2023-01-07 12:07] LABS: BASOPHILS PERCENT AUTO 1 % (0-2); EOSINOPHILS ABSOLUTE AUTO 0.27 K/mm3 (0.00-0.68); EOSINOPHILS PERCENT AUTO 2 % (0-6); Hematocrit 53.7 % (37.0-53.0); Hemoglobin 17.5 g/dL (13.5-17.5); IMMATURE GRAN ABSOLUTE AUTO 0.11 K/mm3 (0.00-0.10); IMMATURE GRAN PERCENT AUTO 1 % (0-1); LYMPHOCYTES PERCENT AUTO 16 % (21-46); MONOCYTES ABSOLUTE AUTO 0.62 K/mm3 (0.16-1.47); MONOCYTES PERCENT AUTO 5 % (4-13); Mean Corpuscular HGB 33.2 pg (26.0-34.0); Mean Corpuscular HGB Conc 32.6 g/dL (31.5-36.5); Mean Corpuscular Volume 102 fL (80-100); Mean Platelet Volume 11.2 fL (9.1-12.4); NEUTROPHILS ABSOLUTE AUTO 9.02 K/mm3 (1.96-9.15); NEUTROPHILS PERCENT AUTO 75 % (41-73); Platelet Count 411 K/mm3 (150-400); RDW Coefficient Variation 14.8 % (11.7-14.2); RDW Standard Deviation 54.8 fL (35.1-46.3); Red Blood Cell Count 5.27 M/mm3 (4.30-5.90); White Blood Cell Count 12.02 K/mm3 (4.00-11.30)
[2023-01-07 12:33] LABS: Albumin, Blood 3.6 g/dL (3.4-5.0); Albumin/Globulin Ratio 0.8 (0.8-1.8); Bilirubin, Total 0.8 mg/dL (0.1-1.0); Bun/Creatinine Ratio 17.4 (12.0-20.0); Calcium, Blood 9.2 mg/dL (8.5-10.1); Creatinine, Blood 1.95 mg/dL (0.60-1.20); Globulin, Blood 4.6 g/dL (2.2-4.0); Potassium, Blood 4.3 mmol/L (3.5-5.5); Total Protein, Blood 8.2 g/dL (6.4-8.2)
[2023-01-07 12:44] LABS: International Normalized Ratio 1.24; Prothrombin Time Results 12.9 Sec (9.7-11.5)
== END | disposition home or self-care (01) ==
LOC: LAB 11:14 → LAB SHORT 11:14
PROVIDERS: Nurse Practitioner
DX: D47.3 Essential (hemorrhagic) thrombocythemia (principal); D45 Polycythemia vera
CPT/HCPCS: 80053; 85025; 85610

== ENCOUNTER 2023-02-09 10:35 | Emergency (ER) | payer MEDICARE, OTHER ==
[~2023-02-09] VITALS: Ht 182.9 cm; Wt 99.8 kg
[2023-02-09 11:51] LABS: International Normalized Ratio 2.11; Prothrombin Time Results 21.2 Sec (9.7-11.5)
[2023-02-09] MEDS ORDERED: ACET325 PO (12:59)
[2023-02-09] MEDS ORDERED: LIDO700A20 TOP (12:59)
[2023-02-09 13:00] VITALS: BP 129/65
== END 2023-02-09 13:20 | disposition home or self-care (01) ==
LOC: ER 10:35
PROVIDERS: Student in an Organized Health Care Education/Training Program
DX: S20.211A Contusion of right front wall of thorax, initial encounter (principal); W18.30XA Fall on same level, unspecified, initial encounter; Z79.899 Other long term (current) drug therapy; I48.92 Unspecified atrial flutter; E03.9 Hypothyroidism, unspecified; Z87.891 Personal history of nicotine dependence
CPT/HCPCS: 71046; 85610; 93005; 93010; 99285-25; A9270

== ENCOUNTER 2023-03-05 18:52 | Inpatient (IN) | payer MEDICARE, OTHER | END 2023-03-06 16:50 | disposition home health service (06) | DRG 291 | LOC: ER 18:52 → MEDS 23:50 | PROVIDERS: ADMIT Internal Medicine | DX: I13.0 Hypertensive heart and chronic kidney disease with heart failure and stage 1 through stage 4 chronic kidney disease, or unspecified chronic kidney disease (principal); I50.21 Acute systolic (congestive) heart failure; J96.00 Acute respiratory failure, unspecified whether with hypoxia or hypercapnia; I48.20 Chronic atrial fibrillation, unspecified; C95.10 Chronic leukemia of unspecified cell type not having achieved remission; N18.9 Chronic kidney disease, unspecified; Z66 Do not resuscitate; E03.9 Hypothyroidism, unspecified; I25.10 Atherosclerotic heart disease of native coronary artery without angina pectoris; M10.9 Gout, unspecified; F32.A Depression, unspecified; G47.30 Sleep apnea, unspecified; J45.909 Unspecified asthma, uncomplicated; Z86.718 Personal history of other venous thrombosis and embolism; Z79.899 Other long term (current) drug therapy; Z95.0 Presence of cardiac pacemaker; Z79.01 Long term (current) use of anticoagulants; Z79.2 Long term (current) use of antibiotics; I25.2 Old myocardial infarction; Z90.89 Acquired absence of other organs; Z98.890 Other specified postprocedural states; Z90.49 Acquired absence of other specified parts of digestive tract ==

== ENCOUNTER 2023-03-31 13:01 | Inpatient (IN) | payer MEDICARE, OTHER ==
[~2023-03-31] VITALS: Ht 182.9 cm; Wt 100.3 kg
[~2023-03-31 13:01] MED LIST changes: +ACET325 PO; +BUME1 PO; +JANTOVEN4 M2 PO; +NEURONTIN300 MG PO
[2023-03-31 13:42] LABS: BASOPHILS ABSOLUTE AUTO 0.15 K/mm3 (0.00-0.23); BASOPHILS PERCENT AUTO 1 % (0-2); EOSINOPHILS ABSOLUTE AUTO 0.21 K/mm3 (0.00-0.68); EOSINOPHILS PERCENT AUTO 1 % (0-6); Hematocrit 50.3 % (37.0-53.0); IMMATURE GRAN ABSOLUTE AUTO 0.15 K/mm3 (0.00-0.10); IMMATURE GRAN PERCENT AUTO 1 % (0-1); LYMPHOCYTES ABSOLUTE AUTO 1.59 K/mm3 (0.84-5.20); LYMPHOCYTES PERCENT AUTO 10 % (21-46); MONOCYTES ABSOLUTE AUTO 0.65 K/mm3 (0.16-1.47); MONOCYTES PERCENT AUTO 4 % (4-13); Mean Corpuscular HGB 31.2 pg (26.0-34.0); Mean Corpuscular HGB Conc 31.8 g/dL (31.5-36.5); Mean Corpuscular Volume 98 fL (80-100); Mean Platelet Volume 11.7 fL (9.1-12.4); NEUTROPHILS ABSOLUTE AUTO 13.12 K/mm3 (1.96-9.15); NEUTROPHILS PERCENT AUTO 83 % (41-73); Platelet Count 401 K/mm3 (150-400); RDW Coefficient Variation 17.2 % (11.7-14.2); RDW Standard Deviation 62.3 fL (35.1-46.3); Red Blood Cell Count 5.13 M/mm3 (4.30-5.90); White Blood Cell Count 15.87 K/mm3 (4.00-11.30)
[2023-03-31 13:51] LABS: International Normalized Ratio 2.01; Prothrombin Time Results 20.3 Sec (9.7-11.5)
[2023-03-31 15:09] LABS: Albumin, Blood 3.4 g/dL (3.4-5.0); Albumin/Globulin Ratio 0.7 (0.8-1.8); Bilirubin, Total 0.7 mg/dL (0.1-1.0); Bun/Creatinine Ratio 15.8 (12.0-20.0); Calcium, Blood 8.6 mg/dL (8.5-10.1); Creatinine, Blood 2.02 mg/dL (0.60-1.20); Globulin, Blood 4.6 g/dL (2.2-4.0); Potassium, Blood 4.2 mmol/L (3.5-5.5)
[2023-03-31 17:51] VITALS: BP 130/74
--- NOTE | 2023-03-31 18:47 | NUR ---
PATIENT HAS SCABBED OVER SHINGLES ON HIS BACK AND RIGHT FLANK, FAMILY REPORTS IT SHAS BEEN THERE SINCE AND AUGUST, NO OPEN SORES, DRY AND FLAKEY, REPORTED TO OPERATIONS AGENT
[2023-03-31 19:24] VITALS: BP 126/49
--- NOTE | 2023-03-31 19:25 | NUR ---
ALERT AND OREITNED, MAKES NEEDS KNOWN, SLOW TO RESPOND, STIFF TO ANY MOVEMENT, VSS, MEDICATION LIST TO BE REVIEWED AGAIN TOMORROW. CALL LIGHT WITH IN REACH, TRANSFERRED CARE TO ORQUIDEA MARC
[2023-04-01] MEDS ORDERED: HYDURE500 PO (00:04)
[2023-04-01] MEDS ORDERED: FUROSEMIDE40 MG PO (00:06)
[2023-04-01 05:29] VITALS: BP 123/72
--- NOTE | 2023-04-01 05:56 | NUR ---
SHIFT SUMMARY- PT ALERT AND ORIENTED. PT HAS HAD NO ACUTE WATER METER MECHANIC NIGHT. PT HAS BEEN IN BED SLEEPING AT CARE ROUNDS. PT CURRENTLY IN BED SLEEPING NO S&S OF DISTRESS NOTED.
[2023-04-01 06:05] LABS: BASOPHILS ABSOLUTE AUTO 0.08 K/mm3 (0.00-0.23); BASOPHILS PERCENT AUTO 1 % (0-2); EOSINOPHILS ABSOLUTE AUTO 0.28 K/mm3 (0.00-0.68); EOSINOPHILS PERCENT AUTO 2 % (0-6); Hematocrit 46.1 % (37.0-53.0); Hemoglobin 14.9 g/dL (13.5-17.5); IMMATURE GRAN ABSOLUTE AUTO 0.14 K/mm3 (0.00-0.10); IMMATURE GRAN PERCENT AUTO 1 % (0-1); LYMPHOCYTES ABSOLUTE AUTO 1.67 K/mm3 (0.84-5.20); LYMPHOCYTES PERCENT AUTO 13 % (21-46); MONOCYTES ABSOLUTE AUTO 0.59 K/mm3 (0.16-1.47); MONOCYTES PERCENT AUTO 5 % (4-13); Mean Corpuscular HGB 31.4 pg (26.0-34.0); Mean Corpuscular HGB Conc 32.3 g/dL (31.5-36.5); Mean Corpuscular Volume 97 fL (80-100); Mean Platelet Volume 11.4 fL (9.1-12.4); NEUTROPHILS ABSOLUTE AUTO 10.26 K/mm3 (1.96-9.15); NEUTROPHILS PERCENT AUTO 79 % (41-73); Platelet Count 369 K/mm3 (150-400); RDW Coefficient Variation 16.8 % (11.7-14.2); RDW Standard Deviation 59.8 fL (35.1-46.3); Red Blood Cell Count 4.75 M/mm3 (4.30-5.90); White Blood Cell Count 13.02 K/mm3 (4.00-11.30)
[2023-04-01 06:17] LABS: International Normalized Ratio 2.05; Prothrombin Time Results 20.7 Sec (9.7-11.5)
[2023-04-01 06:35] LABS: Magnesium, Blood 2.3 mg/dL (1.6-2.4)
[2023-04-01 06:37] LABS: Albumin, Blood 3.2 g/dL (3.4-5.0); Albumin/Globulin Ratio 0.8 (0.8-1.8); Bilirubin, Total 0.4 mg/dL (0.1-1.0); Bun/Creatinine Ratio 16.3 (12.0-20.0); Calcium, Blood 8.2 mg/dL (8.5-10.1); Creatinine, Blood 1.96 mg/dL (0.60-1.20); Globulin, Blood 4.2 g/dL (2.2-4.0); Phosphorus, Blood 3.8 mg/dL (2.5-4.9); Total Protein, Blood 7.4 g/dL (6.4-8.2)
[2023-04-01 09:13] VITALS: BP 90/50
[2023-04-01 09:37] VITALS: BP 89/58
--- NOTE | 2023-04-01 09:50 | NUR ---
DR EDWARDS ROUNDED, REPORTED HYPOTENSION AND TSH LAB VALUE, TELEMETRY TO BE CANCELED, PATEINT RESTING IN THE CHAIR, WILL RE-EVAL BP IN 30 MINUTES, CALL LIGHT WITH IN REACH
[2023-04-01 10:35] VITALS: BP 99/54
[2023-04-01 11:39] VITALS: BP 103/64
--- NOTE | 2023-04-01 17:51 | NUR ---
NO ACUTE CHANGES, PT/OT WORKED WITH PATIENT, TELE DISCONTINUED, PACED 60S, DENEIS CP, RESTING, STILL VERY STIFF TO MOVEMENT, ALERT AND OREITNED MAKES NEEDS KNOWN, CALL LIGHT WITH IN REACH
[2023-04-01 20:30] VITALS: BP 102/74
[2023-04-02 04:09] VITALS: BP 131/82
--- NOTE | 2023-04-02 04:33 | NUR ---
SHIFT SUMMARY; NO ACUTE CHANGES OVERNIGHT. THE PT IS AXO X4 AND STANDBY ASSIST R/T TO SYNCOPE. THE PT GETS INPATINET AND DOES NOT ALWAYS WAIT FOR A STAFF MEMBER TO BE PRESENT BEFORE AMBULATING, THEREFORE A BED ALARM IS ON. THE PT IS ON TELE- V-PACED @60 BPM. THE PT DENIES ANY PAIN, SOB,CHEST PAIN/PRESSURE OR N/V. CURRENTLY THE PT IS SLEEPING IN BED WITH THE BED IN THE LOWEST POSITION AND THE CALL LIGHT AT BEDSIDE. FIRE SAFETY MAINTAINED T/O THE NIGHT.
[2023-04-02 04:41] LABS: International Normalized Ratio 1.84; Prothrombin Time Results 18.7 Sec (9.7-11.5)
[2023-04-02 06:28] LABS: Albumin, Blood 3.3 g/dL (3.4-5.0); Anion Gap 8 mmol/L (6-16); Blood Urea Nitrogen 34 mg/dL (8-24); Bun/Creatinine Ratio 17.5 (12.0-20.0); CO2, Blood 24 mmol/L (21-32); Calcium, Blood 8.4 mg/dL (8.5-10.1); Chloride, Blood 101 mmol/L (98-108); Creatinine, Blood 1.94 mg/dL (0.60-1.20); Glomerular Filtration Rate 33 (60-); Glucose, Blood 100 mg/dL (70-99); Phosphorus, Blood 3.6 mg/dL (2.5-4.9); Potassium, Blood 4.1 mmol/L (3.5-5.5); Sodium, Blood 133 mmol/L (136-145)
[2023-04-02 07:34] VITALS: BP 140/85
[2023-04-02 13:15] VITALS: BP 88/53
[2023-04-02 15:45] VITALS: BP 132/81
--- NOTE | 2023-04-02 17:06 | NUR ---
SHIFT SUMMARY PATIENT IS ALERT AND ORIENTED. PATIENT HAS NO ACUTE EVENTS THIS SHIFT. VITAL SIGNS REVIEWED. PATIENT HAS HAD NO COMPLAINTS OF PAIN, NAUSEA, SOB OR VOMITTING THIS SHIFT. PATIENT HAD ONE EPISODE OF DIZZINESS, VITALS TAKEN AND PATIENT FOUND TO BE HYPOTENSIVE. DR EDWARDS CONTACTED AND ORDERS RECEIVED AND GIVEN. PATIENT RESPONDED WELL TO MEDICATION. PATIENT IS PLANNING ON DISCHARGING TO SNF TOMORROW. UPDATE GIVEN TO ABOUT DISCHARGE. BED IN LOCKED AND LOWEST POSITION. CALL LIGHT IN PLACE. WILL MONITOR UNTIL SHIFT CHANGE.
[2023-04-02 19:39] VITALS: BP 146/91
[2023-04-03 02:25] VITALS: BP 133/80
--- NOTE | 2023-04-03 04:37 | NUR ---
SHIFT SUMMARY; NO ACUTE CHANGES OVERNIGHT. THE PT IS AXO X4 AND A STANDBY ASSIST TO THE BATHROOM. THE PT HAS BEEN LAYING IN BED FOR THE DURATION OF THE SHIFT. TELE IS IN PLACE- V-PACED AT 60. THE PT DENIES ANY PAIN, SOB, CHEST PAIN/PRESSURE OR N/V. CURRENTLY THE PT IS SLEEPING IN BED WITH THE BED IN THE LOWEST POSITION AND THE CALL LIGHT AT BEDSIDE. PT IS EXCITED TO D/C TO [facility] TODAY. FIRE SAFETY MAINTAINED T/O THE SHIFT.
[2023-04-03 05:50] LABS: SARS-Cov-2 (COVID-19) PCR, MMC NEGATIVE (NEGATIVE)
[2023-04-03 06:01] LABS: International Normalized Ratio 1.85; Prothrombin Time Results 18.8 Sec (9.7-11.5)
[2023-04-03 07:23] VITALS: BP 132/81
[2023-04-03] MEDS ORDERED: MIDO5 PO (11:16)
[2023-04-03 12:09] VITALS: BP 134/85
--- NOTE | 2023-04-03 13:22 | NUR ---
RN NOTE MR RODRIGEZ IS OX4, [place]. UP TO THE SHOWER WITH ONE PERSON ASSIST. VOIDING WELL IN THE TOILET, SAID HE HAD A BM THIS AM. C/O R ARM ACHE, SAID THIS IS A CHRONIC COMPLAINT. GIVEN TYLENOL WHICH HE SAID WAS HELPFUL. PIV AND TELEMETRY REMOVED. AWAITING TRANSPORT TO GO TO [facility]. REPORT CALLED TO MAKEDA AT [facility]. MR RODRIGEZ IS DRESSED AND AWAITING TRANSPORT. ORTHOSTATIC VS DONE THIS MORNING AND RESULTS CALLED TO DR EDWARDS WITH NO CHANGES TO ORDERS/PLAN OF CARE.
--- NOTE | 2023-04-03 14:58 | NUR ---
DISCHARGE TRANSPORT TOOK PT TO [facility] AT 1440HRS
== END 2023-04-03 14:55 | DRG 918 ==
LOC: ER 13:01 → MEDS 16:32 → ENPENDDIS 04-03 10:26 → MEDS 04-03 14:55
PROVIDERS: Student in an Organized Health Care Education/Training Program; ADMIT Family Medicine
DX: T50.2X1A Poisoning by carbonic-anhydrase inhibitors, benzothiadiazides and other diuretics, accidental (unintentional), initial encounter (principal); C95.90 Leukemia, unspecified not having achieved remission; I13.0 Hypertensive heart and chronic kidney disease with heart failure and stage 1 through stage 4 chronic kidney disease, or unspecified chronic kidney disease; I50.22 Chronic systolic (congestive) heart failure; I95.1 Orthostatic hypotension; I48.91 Unspecified atrial fibrillation; N18.30 Chronic kidney disease, stage 3 unspecified; E86.1 Hypovolemia; E03.9 Hypothyroidism, unspecified; Z86.718 Personal history of other venous thrombosis and embolism; Z66 Do not resuscitate; Z95.0 Presence of cardiac pacemaker
CPT/HCPCS: 36415; 80053; 80069; 82607; 82746; 83735; 83880; 84100; 84443; 84484; 85025; 85610; 93005; 93010; 97110; 97116; 97161; 97165; 97530; 97535; 99285-25; A9270; J7030; U0002

== ENCOUNTER → 2024-01-11 | Outpatient (CLI) | payer MEDICARE, OTHER ==
[~2024-01-11] MED LIST changes: +FUROSEMIDE40 MG PO; +MIDO5 PO
[2024-01-12 13:50] LABS: Adenovirus F 40/41 Not Detected (NOT DETECT); Astrovirus Not Detected (NOT DETECT); Campylobacter Sp Not Detected (NOT DETECT); Cryptosporidium Not Detected (NOT DETECT); Cyclospora Cayetanensis Not Detected (NOT DETECT); E. Coli O157 Not Detected (NOT DETECT); Entamoeba Histolytica Not Detected (NOT DETECT); Enteroaggregative E. coli-EAEC Not Detected (NOT DETECT); Enteropathogenic E. coli-EPEC Not Detected (NOT DETECT); Enterotoxigenic E. coli-ETEC Not Detected (NOT DETECT); Giardia Lamblia Not Detected (NOT DETECT); Norovirus GI/GII Detected (NOT DETECT); Plesiomonas Shigelloides Not Detected (NOT DETECT); Rotavirus A Not Detected (NOT DETECT); Salmonella Sp Not Detected (NOT DETECT); Sapovirus Not Detected (NOT DETECT); Shiga Toxin-prod E. coli-STEC Not Detected (NOT DETECT); Shigella/Enteroin E. coli-EIEC Not Detected (NOT DETECT); Vibrio Cholerae Not Detected (NOT DETECT); Vibrio Sp Not Detected (NOT DETECT); Yersinia Enterocolitica Not Detected (NOT DETECT)
== END ==
LOC: LAB 16:30 → LAB SHORT 16:30
PROVIDERS: Family Medicine
DX: R19.7 Diarrhea, unspecified (principal)
CPT/HCPCS: 87324; 87507

== ENCOUNTER → 2024-03-11 | Outpatient (CLI) | payer MEDICARE, OTHER ==
[~2024-03-11] MED LIST changes: +Acetaminophen650 M1 PO; -EUTHYROX125 MCG PO; +LOSA50 PO
[2024-03-11 12:15] LABS: BASOPHILS ABSOLUTE AUTO 0.07 K/mm3 (0.00-0.23); BASOPHILS PERCENT AUTO 1 % (0-2); EOSINOPHILS ABSOLUTE AUTO 0.17 K/mm3 (0.00-0.68); EOSINOPHILS PERCENT AUTO 2 % (0-6); Hematocrit 49.8 % (37.0-53.0); Hemoglobin 16.5 g/dL (13.5-17.5); IMMATURE GRAN ABSOLUTE AUTO 0.14 K/mm3 (0.00-0.10); IMMATURE GRAN PERCENT AUTO 1 % (0-1); LYMPHOCYTES ABSOLUTE AUTO 2.06 K/mm3 (0.84-5.20); LYMPHOCYTES PERCENT AUTO 20 % (21-46); MONOCYTES ABSOLUTE AUTO 0.66 K/mm3 (0.16-1.47); MONOCYTES PERCENT AUTO 6 % (4-13); Mean Corpuscular HGB 37.5 pg (26.0-34.0); Mean Corpuscular HGB Conc 33.1 g/dL (31.5-36.5); Mean Corpuscular Volume 113 fL (80-100); Mean Platelet Volume 11.3 fL (9.1-12.4); NEUTROPHILS ABSOLUTE AUTO 7.16 K/mm3 (1.96-9.15); NEUTROPHILS PERCENT AUTO 70 % (41-73); Platelet Count 389 K/mm3 (150-400); RDW Coefficient Variation 13.2 % (11.7-14.2); RDW Standard Deviation 55.7 fL (35.1-46.3); White Blood Cell Count 10.26 K/mm3 (4.00-11.30)
[2024-03-11 12:59] LABS: Albumin, Blood 3.7 g/dL (3.4-5.0); Albumin/Globulin Ratio 0.7 (0.8-1.8); Bilirubin, Total 0.7 mg/dL (0.1-1.0); Bun/Creatinine Ratio 21.6 (12.0-20.0); Calcium, Blood 8.6 mg/dL (8.5-10.1); Creatinine, Blood 1.71 mg/dL (0.60-1.20); Globulin, Blood 5.4 g/dL (2.2-4.0); Potassium, Blood 4.9 mmol/L (3.5-5.5); Total Protein, Blood 9.1 g/dL (6.4-8.2)
== END | disposition home or self-care (01) ==
LOC: LAB 12:05 → LAB SHORT 12:05
PROVIDERS: Physician Assistant
DX: I50.32 Chronic diastolic (congestive) heart failure (principal)
CPT/HCPCS: 80053; 83880; 84484; 85025

== ENCOUNTER 2024-03-15 17:16 | Inpatient (IN) | payer MEDICARE, OTHER ==
[~2024-03-15] VITALS: Ht 188 cm; Wt 93.5 kg
[~2024-03-15 17:16] MED LIST changes: -Acetaminophen650 M1 PO; -LOSA50 PO
[2024-03-15 17:47] LABS: BASOPHILS ABSOLUTE AUTO 0.06 K/mm3 (0.00-0.23); BASOPHILS PERCENT AUTO 1 % (0-2); EOSINOPHILS ABSOLUTE AUTO 0.02 K/mm3 (0.00-0.68); EOSINOPHILS PERCENT AUTO 0 % (0-6); Hematocrit 51.5 % (37.0-53.0); IMMATURE GRAN ABSOLUTE AUTO 0.15 K/mm3 (0.00-0.10); IMMATURE GRAN PERCENT AUTO 1 % (0-1); LYMPHOCYTES ABSOLUTE AUTO 1.26 K/mm3 (0.84-5.20); LYMPHOCYTES PERCENT AUTO 10 % (21-46); MONOCYTES ABSOLUTE AUTO 1.07 K/mm3 (0.16-1.47); MONOCYTES PERCENT AUTO 9 % (4-13); Mean Corpuscular Volume 112 fL (80-100); Mean Platelet Volume 11.7 fL (9.1-12.4); NEUTROPHILS ABSOLUTE AUTO 9.53 K/mm3 (1.96-9.15); NEUTROPHILS PERCENT AUTO 79 % (41-73); Platelet Count 367 K/mm3 (150-400); RDW Coefficient Variation 13.1 % (11.7-14.2); White Blood Cell Count 12.09 K/mm3 (4.00-11.30)
[2024-03-15 18:10] LABS: Albumin, Blood 3.3 g/dL (3.4-5.0); Albumin/Globulin Ratio 0.6 (0.8-1.8); Bun/Creatinine Ratio 28.5 (12.0-20.0); Calcium, Blood 9.2 mg/dL (8.5-10.1); Creatinine, Blood 1.86 mg/dL (0.60-1.20); Magnesium, Blood 2.6 mg/dL (1.6-2.4); Potassium, Blood 4.3 mmol/L (3.5-5.5); Total Protein, Blood 9.3 g/dL (6.4-8.2)
[2024-03-15 18:18] LABS: Influenza A, PCR NEGATIVE (NEGATIVE); Influenza B, PCR NEGATIVE (NEGATIVE); Resp Syncytial Virus, PCR NEGATIVE (NEGATIVE); SARS-Cov-2 (COVID-19) PCR, MMC NEGATIVE (NEGATIVE)
[2024-03-15 18:55] LABS: Source, Urine Clean Catch
[2024-03-15 18:57] LABS: Appearance, Urine Clear (Clear); Bilirubin, Urine Neg (Neg); Blood, Urine 1+ (Neg); Color, Urine Yellow (P-Yellow); Glucose Qualitative, Urine Neg (Neg); Ketones, Urine Neg (Neg); Leukocyte Esterase, Urine Neg (Neg); Nitrite, Urine Neg (Neg); Protein, Urine 2+ (Neg); Urobilinogen, Urine NORM (Normal)
[2024-03-15 19:15] LABS: Bacteria Many /hpf; Hyaline Casts 0-2 /lpf (0-2); Mucus Light (0-Heavy); Squamous Epithelial Cells Few /hpf (Few)
[2024-03-16 00:04] LABS: International Normalized Ratio 1.24; Prothrombin Time Results 13.1 Sec (9.7-11.5)
[2024-03-16] MEDS ORDERED: Heparin Sodium 5000 Units/ML 1ML MDV IV ONE (04:00)
[2024-03-16] MEDS ORDERED: Furosemide 10 MG/ML 4ML Vial IV SCH (04:15)
[2024-03-16] MEDS ORDERED: Heparin Sodium,Porcine/0.5 NS 500 ML IV SCH (05:10)
[2024-03-16] MEDS ORDERED: Ondansetron HCl 2 MG / ML 2ML Vial IV PRN (05:40)
[2024-03-16] MEDS ORDERED: Acetaminophen 325 MG TABLET PO PRN (05:40)
[2024-03-16] MEDS ORDERED: OxyCODONE HCL 5 MG TAB PO PRN (05:40)
[2024-03-16 05:44] LABS: BASOPHILS ABSOLUTE AUTO 0.06 K/mm3 (0.00-0.23); BASOPHILS PERCENT AUTO 0 % (0-2); EOSINOPHILS ABSOLUTE AUTO 0.04 K/mm3 (0.00-0.68); EOSINOPHILS PERCENT AUTO 0 % (0-6); Hematocrit 49.8 % (37.0-53.0); IMMATURE GRAN ABSOLUTE AUTO 0.15 K/mm3 (0.00-0.10); IMMATURE GRAN PERCENT AUTO 1 % (0-1); LYMPHOCYTES ABSOLUTE AUTO 2.27 K/mm3 (0.84-5.20); LYMPHOCYTES PERCENT AUTO 17 % (21-46); MONOCYTES ABSOLUTE AUTO 1.58 K/mm3 (0.16-1.47); MONOCYTES PERCENT AUTO 12 % (4-13); Mean Corpuscular HGB 36.4 pg (26.0-34.0); Mean Corpuscular HGB Conc 32.1 g/dL (31.5-36.5); Mean Corpuscular Volume 113 fL (80-100); Mean Platelet Volume 11.8 fL (9.1-12.4); NEUTROPHILS ABSOLUTE AUTO 9.35 K/mm3 (1.96-9.15); NEUTROPHILS PERCENT AUTO 70 % (41-73); Platelet Count 354 K/mm3 (150-400); RDW Coefficient Variation 13.1 % (11.7-14.2); RDW Standard Deviation 54.7 fL (35.1-46.3); White Blood Cell Count 13.45 K/mm3 (4.00-11.30)
[2024-03-16 05:53] LABS: Bun/Creatinine Ratio 23.4 (12.0-20.0); Calcium, Blood 8.6 mg/dL (8.5-10.1); Creatinine, Blood 1.84 mg/dL (0.60-1.20); Potassium, Blood 4.6 mmol/L (3.5-5.5)
[2024-03-16] MEDS ORDERED: Levothyroxine Sodium 0.125 MG Tab PO SCH (06:00)
[2024-03-16 07:43] VITALS: BP 145/78
--- NOTE | 2024-03-16 07:54 | NUR ---
SHIFT SUMMARY: PATIENT IS A&OX4, VSS, TELI IS IN PLACE. PATIENT REPORTS FEET ARE PAINFUL WITH AMBULATION. HEPARIN GTT IS INFUSING PER MAR AND PHARNACY CONSULT ORDERS. NEXT ANTI-XA IS DUE AT 10:30. LASIX 40 MG IV WAS ALSO GIVEN, PATIENT HAD GOOD OUTPUT, SEE I&O. PATIENT ATE SOUP AND CRACKERS INDEPENDANTLY, NO SWALLOWING DIFFICULTIES OBSERVED.
[2024-03-16] MEDS ORDERED: HYDROXYurea 500 MG Cap PO SCH (09:00)
[2024-03-16] MEDS ORDERED: Dose Adjust by Pharmacy XX STA ×2 (11:38→18:00)
[2024-03-16] MEDS ORDERED: WARF5 PO (13:43)
[2024-03-16 15:25] VITALS: BP 108/72
[2024-03-16] MEDS ORDERED: Gabapentin 300 MG Cap PO SCH ×2 (17:00→21:00)
[2024-03-16] MEDS ORDERED: Warfarin Sodium 5 MG Tab PO SCH (18:00)
--- NOTE | 2024-03-16 20:05 | NUR ---
SUMMARY- PT A/O X3-4, NO ORIENTED TO DETAILS. PT ON BEDREST, SEVERE PAIN IN FEET.PULSES IN BLE VERY FAINT, DUPLEX U.C COMPLETED BLE. PT ON HEPARIN GTT FOR BLOOD CLOTS. PHARM TO MANAGE. PT NOT HAVING SOB, OXYGEN 2L, LUNGS CLEAR, FINE CRACKLES HEARD L BASE. BLE EDEMA. DIURESING PT. MEDICATED WITH OXY X1 FOR FOOT PAIN WITH RELEIF. NEURONTIN HOME DOSE ORDERED, STARTED THIS PM. PT TOLERATING FOOD AND FLUID. STRICT I/O ABLE WITH OCC INCONT. DAILY WEIGHT. INCONT OF LG FORMED BM AND AGAIN HAD LOOSE INCONT STOOL. DAUGHTER IN TO VISIT. STATES SHE CANT HAVE HIM COME HOME TO BE WITH HER THAT HE WAS NOT ABLE TO GET AROUND GOOD ENOUGH CURRENTLY. REPORTED TO INGRED NINO MARC.
[2024-03-16 20:55] VITALS: BP 128/74
[2024-03-16] MEDS ORDERED: Latanoprost 0.005% Opth Soln 2.5 ML BOTHEYES SCH (21:00)
[2024-03-16] MEDS ORDERED: Dorzolamide 2% Opth Soln BOTHEYES SCH (21:00)
[2024-03-16] MEDS ORDERED: Tamsulosin HCl 0.4 MG Cap PO SCH (21:00)
[2024-03-17 04:00] VITALS: BP 132/74
[2024-03-17 06:04] LABS: Hematocrit 45.7 % (37.0-53.0); Hemoglobin 14.8 g/dL (13.5-17.5); Mean Platelet Volume 12.1 fL (9.1-12.4); Platelet Count 328 K/mm3 (150-400)
[2024-03-17 06:18] LABS: Anti-Xa UFH, PHA Monitoring 0.36 IU/mL; International Normalized Ratio 1.23
--- NOTE | 2024-03-17 06:56 | NUR ---
END OF SHIFT SUMMARY PLACED MALE PUREWICK FOR STRICT I&O, INCONTINENT AT TIMES OF BLADDER AND BOWEL. REMAINS ON HEPARIN GTT, NO TITRATION NEEDED. NO ACUTE EVENTS OVERNIGHT.
[2024-03-17 07:31] LABS: BASOPHILS ABSOLUTE AUTO 0.06 K/mm3 (0.00-0.23); BASOPHILS PERCENT AUTO 1 % (0-2); EOSINOPHILS ABSOLUTE AUTO 0.07 K/mm3 (0.00-0.68); EOSINOPHILS PERCENT AUTO 1 % (0-6); Hematocrit 45.7 % (37.0-53.0); Hemoglobin 14.9 g/dL (13.5-17.5); IMMATURE GRAN PERCENT AUTO 2 % (0-1); LYMPHOCYTES ABSOLUTE AUTO 1.56 K/mm3 (0.84-5.20); LYMPHOCYTES PERCENT AUTO 14 % (21-46); MONOCYTES ABSOLUTE AUTO 1.13 K/mm3 (0.16-1.47); MONOCYTES PERCENT AUTO 10 % (4-13); Mean Corpuscular HGB 36.5 pg (26.0-34.0); Mean Corpuscular HGB Conc 32.6 g/dL (31.5-36.5); Mean Corpuscular Volume 112 fL (80-100); Mean Platelet Volume 12.5 fL (9.1-12.4); NEUTROPHILS ABSOLUTE AUTO 7.88 K/mm3 (1.96-9.15); NEUTROPHILS PERCENT AUTO 72 % (41-73); Platelet Count 318 K/mm3 (150-400); RDW Standard Deviation 53.7 fL (35.1-46.3); Red Blood Cell Count 4.08 M/mm3 (4.30-5.90)
[2024-03-17 07:39] LABS: Albumin, Blood 2.7 g/dL (3.4-5.0); Albumin/Globulin Ratio 0.5 (0.8-1.8); Bilirubin, Total 0.7 mg/dL (0.1-1.0); Calcium, Blood 8.4 mg/dL (8.5-10.1); Creatinine, Blood 1.71 mg/dL (0.60-1.20); Globulin, Blood 5.2 g/dL (2.2-4.0); Total Protein, Blood 7.9 g/dL (6.4-8.2)
[2024-03-17 07:42] VITALS: BP 115/70
[2024-03-17] MEDS ORDERED: Lidocaine 4% 1 Patch TOP SCH (09:00)
[2024-03-17] MEDS ORDERED: HYDROXYurea 500 MG Cap PO SCH (09:00)
[2024-03-17 14:55] VITALS: BP 124/73
[2024-03-17 14:56] LABS: Hematocrit 46.5 % (37.0-53.0); Hemoglobin 15.3 g/dL (13.5-17.5)
[2024-03-17] MEDS ORDERED: Enoxaparin 100 MG/ML 1ML SYR SC SCH (16:30)
[2024-03-17] MEDS ORDERED: Warfarin Sodium 7.5 MG Tab PO ONE (18:00)
[2024-03-17 19:36] VITALS: BP 122/68
[2024-03-18 03:32] VITALS: BP 96/55
[2024-03-18 06:04] LABS: BASOPHILS ABSOLUTE AUTO 0.05 K/mm3 (0.00-0.23); BASOPHILS PERCENT AUTO 1 % (0-2); EOSINOPHILS ABSOLUTE AUTO 0.11 K/mm3 (0.00-0.68); EOSINOPHILS PERCENT AUTO 1 % (0-6); Hematocrit 44.1 % (37.0-53.0); Hemoglobin 14.5 g/dL (13.5-17.5); IMMATURE GRAN ABSOLUTE AUTO 0.14 K/mm3 (0.00-0.10); IMMATURE GRAN PERCENT AUTO 2 % (0-1); LYMPHOCYTES ABSOLUTE AUTO 1.61 K/mm3 (0.84-5.20); LYMPHOCYTES PERCENT AUTO 17 % (21-46); MONOCYTES ABSOLUTE AUTO 0.91 K/mm3 (0.16-1.47); MONOCYTES PERCENT AUTO 10 % (4-13); Mean Corpuscular HGB 36.2 pg (26.0-34.0); Mean Corpuscular HGB Conc 32.9 g/dL (31.5-36.5); Mean Corpuscular Volume 110 fL (80-100); Mean Platelet Volume 11.9 fL (9.1-12.4); NEUTROPHILS ABSOLUTE AUTO 6.53 K/mm3 (1.96-9.15); NEUTROPHILS PERCENT AUTO 70 % (41-73); Platelet Count 322 K/mm3 (150-400); RDW Coefficient Variation 12.8 % (11.7-14.2); RDW Standard Deviation 52.5 fL (35.1-46.3); Red Blood Cell Count 4.01 M/mm3 (4.30-5.90); White Blood Cell Count 9.35 K/mm3 (4.00-11.30)
[2024-03-18 06:18] LABS: International Normalized Ratio 1.32; Prothrombin Time Results 13.8 Sec (9.7-11.5)
[2024-03-18 06:30] LABS: Bun/Creatinine Ratio 34.1 (12.0-20.0); Calcium, Blood 8.4 mg/dL (8.5-10.1); Creatinine, Blood 1.76 mg/dL (0.60-1.20); Potassium, Blood 3.8 mmol/L (3.5-5.5)
--- NOTE | 2024-03-18 06:39 | NUR ---
RESERVES CLERK PATIENT IS A&OX4, SOFT BP, ON ROOM AIR, ON TELE RUNNIGN SINUS RHYTHM WITH BUNDLE BRANCH BLOCK. PATIENT IS ON BEDREST, NEED Q2 TURN,BED IS AT A LOWER POSITION, AND CALL IGHT WITHIN REACH. PATIENT CALLS APPROPRIATELY, HAS AN EXTERNAL CATHETER IN. PATIENT COMLAINED OF PAIN TO BILATERAL LOWER EXTREMITIES, PRN PAIN MEDS GIVEN. PATIENT SLEPT THE REST OF THE SHIFT AFTER TAKING PAIN MEDS
[2024-03-18 07:10] VITALS: BP 110/65
[2024-03-18] MEDS ORDERED: HYDROXYurea 500 MG Cap PO SCH (09:00)
[2024-03-18 14:40] VITALS: BP 131/63
[2024-03-18] MEDS ORDERED: Enoxaparin 40 MG/0.4 ML SYR SC SCH (16:30)
[2024-03-18] MEDS ORDERED: Warfarin Sodium 5 MG Tab PO SCH (18:00)
--- NOTE | 2024-03-18 18:46 | NUR ---
VSS, A-0X4 ANIAK , denies SOB, states 6 out of 10 pain that was well managed with prn oxycodone, on bedrest, on RA. Lungs diminished, heart irregular, A-flutter on Tele, skin intact, +3 BLE edema. Pt can make needs known, call cano in hand, bed in lowest position.
[2024-03-18 19:46] VITALS: BP 121/70
[2024-03-18] MEDS ORDERED: LOSA50 PO (23:03)
[2024-03-18] MEDS ORDERED: LIDO700A20 TOP (23:06)
[2024-03-18] MEDS ORDERED: Acetaminophen650 M1 PO (23:07)
[2024-03-19 03:03] VITALS: BP 133/82
--- NOTE | 2024-03-19 04:20 | NUR ---
CLINICAL BIOSTATISTICS DIRECTOR PATIENT IS A&OX4, VITALS ARE STABLE, ON ROOM AIR, ON TELE RUNNING A FLUTTER WITH BUNDLE BRANCH BLOCK. PATIENT COMPLAINED OF PAIN TO BILATERAL LOWER EXTREMITIES, PRN PAIN MEDS GIVEN. PATIENT HAS LIMITED MOBILITY TO BILATERAL LOWER EXTREMITIES, ON BED REST AND IS A Q2 TURN. PATIENT HAS ON A MALE EXTERNAL CATHETER THAT IS WORKING WELL. PATIENT CALLS APPROPRIATELY, CALL LIGHT IN REACH, AND BED AT LOW POSITION
[2024-03-19 05:36] LABS: International Normalized Ratio 1.48; Prothrombin Time Results 15.4 Sec (9.7-11.5)
[2024-03-19 06:06] LABS: Albumin, Blood 2.6 g/dL (3.4-5.0); Anion Gap 15 mmol/L (3-11); Blood Urea Nitrogen 67 mg/dL (8-24); CO2, Blood 21 mmol/L (21-32); Calcium, Blood 8.3 mg/dL (8.5-10.1); Chloride, Blood 102 mmol/L (98-108); Creatinine, Blood 1.81 mg/dL (0.60-1.20); Glomerular Filtration Rate 35 (60-); Glucose, Blood 131 mg/dL (70-99); Phosphorus, Blood 3.5 mg/dL (2.5-4.9); Potassium, Blood 4.1 mmol/L (3.5-5.5); Sodium, Blood 134 mmol/L (136-145)
[2024-03-19 07:40] VITALS: BP 113/78
[2024-03-19 14:49] VITALS: BP 128/68
[2024-03-19] MEDS ORDERED: Warfarin Sodium 5 MG Tab PO SCH (18:00)
--- NOTE | 2024-03-19 19:16 | NUR ---
VSS, A-Ox4, denies SOB, states mild pain in R knee that was well managed with sheduled lidocain patch, bedbound, on RA. Lungs diminished, heart irregular, A-flutter on Tele, bowel sounds normative, on male purwick. Pt can make needs known, call cano in hand, bed in lowest position.
[2024-03-19 19:18] VITALS: BP 115/77
[2024-03-20 04:09] VITALS: BP 145/82
[2024-03-20 04:35] LABS: International Normalized Ratio 1.61; Prothrombin Time Results 16.6 Sec (9.7-11.5)
[2024-03-20 04:46] LABS: Albumin, Blood 2.3 g/dL (3.4-5.0); Anion Gap 13 mmol/L (3-11); Blood Urea Nitrogen 68 mg/dL (8-24); Bun/Creatinine Ratio 43.3 (12.0-20.0); CO2, Blood 19 mmol/L (21-32); Calcium, Blood 8.5 mg/dL (8.5-10.1); Chloride, Blood 106 mmol/L (98-108); Creatinine, Blood 1.57 mg/dL (0.60-1.20); Glomerular Filtration Rate 42 (60-); Glucose, Blood 129 mg/dL (70-99); Phosphorus, Blood 3.5 mg/dL (2.5-4.9); Potassium, Blood 4.4 mmol/L (3.5-5.5); Sodium, Blood 134 mmol/L (136-145)
[2024-03-20 07:04] VITALS: BP 113/75
[2024-03-20 15:51] VITALS: BP 125/66
[2024-03-20] MEDS ORDERED: Warfarin Sodium 7.5 MG Tab PO SCH (18:00)
--- NOTE | 2024-03-20 19:19 | NUR ---
VSS, A-Ox4, denies SOB, states mild R knee pain that was well managed with scheduled lidocain patch, bedbound, on RA. Lungs diminished, heart irregular, A-flutter on Tele, bowel sounds normative, incontent of urine and stool, male purwick in place, had 2x BM. Pt can make needs known, call cano in hand, bed in lowest position.
[2024-03-20 19:32] VITALS: BP 138/78
[2024-03-21 03:50] VITALS: BP 136/65
[2024-03-21 05:11] LABS: Prothrombin Time Results 20.3 Sec (9.7-11.5)
[2024-03-21 05:15] LABS: Albumin, Blood 2.4 g/dL (3.4-5.0); Anion Gap 11 mmol/L (3-11); Blood Urea Nitrogen 64 mg/dL (8-24); Bun/Creatinine Ratio 46.7 (12.0-20.0); CO2, Blood 23 mmol/L (21-32); Calcium, Blood 8.5 mg/dL (8.5-10.1); Chloride, Blood 107 mmol/L (98-108); Creatinine, Blood 1.37 mg/dL (0.60-1.20); Glomerular Filtration Rate 49 (60-); Glucose, Blood 127 mg/dL (70-99); Phosphorus, Blood 2.9 mg/dL (2.5-4.9); Sodium, Blood 137 mmol/L (136-145)
--- NOTE | 2024-03-21 05:39 | NUR ---
Patient alert and oriented x3, VSS, resting comfortably in bed on room air. Male external catheter wicking system in place, working well; patient incontinent of bowel and bladder, two bowel movements in bed overnight. Cardiac telemetry on patient displaying A. Flutter with bundle branch block, PVC's.
[2024-03-21 07:39] VITALS: BP 123/63
[2024-03-21 13:28] LABS: SARS-Cov-2 (COVID-19) PCR, MMC NEGATIVE (NEGATIVE)
[2024-03-21] MEDS ORDERED: Warfarin Sodium 5 MG Tab PO ONE (14:00)
[2024-03-21 14:53] VITALS: BP 136/84
--- NOTE | 2024-03-21 18:02 | NUR ---
VSS, A-Ox4, denies SOB, states mild pain in R knee that was well managed with scheduled lidocain patch, ambulates to chair with 2x assist, on RA. Lungs diminished, heart irregular, A-flutter on Tele, bowel sounds normative, skin intact. Pt D/C at 1650, report given to [facility], safety ensured.
== END 2024-03-21 16:48 | DRG 299 ==
LOC: ER 17:16 → ERHOLD 17:18 → MEDS 17:18 → ERHOLD 03-16 00:47 → ER 03-16 00:47 → ERHOLD 03-16 01:55 → MEDS 03-16 01:55
PROVIDERS: Family Medicine; Hospitalist; Internal Medicine Endocrinology, Diabetes & Metabolism; Student in an Organized Health Care Education/Training Program; ADMIT Family Medicine
DX: I82.403 Acute embolism and thrombosis of unspecified deep veins of lower extremity, bilateral (principal); J96.01 Acute respiratory failure with hypoxia; I13.0 Hypertensive heart and chronic kidney disease with heart failure and stage 1 through stage 4 chronic kidney disease, or unspecified chronic kidney disease; N17.9 Acute kidney failure, unspecified; I48.92 Unspecified atrial flutter; I48.91 Unspecified atrial fibrillation; N18.30 Chronic kidney disease, stage 3 unspecified; I50.9 Heart failure, unspecified; E03.9 Hypothyroidism, unspecified; E11.22 Type 2 diabetes mellitus with diabetic chronic kidney disease; E11.42 Type 2 diabetes mellitus with diabetic polyneuropathy; M25.561 Pain in right knee; H91.90 Unspecified hearing loss, unspecified ear; H40.9 Unspecified glaucoma; Z98.890 Other specified postprocedural states; Z79.899 Other long term (current) drug therapy; Z79.890 Hormone replacement therapy; Z79.01 Long term (current) use of anticoagulants; D47.3 Essential (hemorrhagic) thrombocythemia; Z96.651 Presence of right artificial knee joint; Z87.19 Personal history of other diseases of the digestive system
CPT/HCPCS: 0241U; 36415; 70450; 73562-RT; 80048; 80053; 80069; 81001; 83735; 83880; 84484; 85014; 85018; 85025; 85049; 85520; 85610; 85730; 87086; 93005; 93010; 93306; 93970; 94760; 96374; 96375; 97110; 97162; 97166; 97530; 97535; 99285-25; A9270; G0378; J1644; J1650; J1940; U0002

== ENCOUNTER 2024-04-29 19:33 | Emergency (ER) | payer MEDICARE, OTHER ==
[~2024-04-29] VITALS: Ht 182.9 cm; Wt 95.2 kg
[~2024-04-29 19:33] MED LIST changes: +Acetaminophen650 M1 PO; +LOSA50 PO
[2024-04-29 21:26] LABS: Bun/Creatinine Ratio 22.9 (12.0-20.0); Calcium, Blood 8.5 mg/dL (8.5-10.1); Creatinine, Blood 1.7 mg/dL (0.60-1.20); Potassium, Blood 4.5 mmol/L (3.5-5.5)
[2024-04-29 21:27] LABS: BASOPHILS ABSOLUTE AUTO 0.03 K/mm3 (0.00-0.23); BASOPHILS PERCENT AUTO 1 % (0-2); EOSINOPHILS ABSOLUTE AUTO 0.08 K/mm3 (0.00-0.68); EOSINOPHILS PERCENT AUTO 1 % (0-6); Hematocrit 44.3 % (37.0-53.0); Hemoglobin 14.6 g/dL (13.5-17.5); IMMATURE GRAN ABSOLUTE AUTO 0.04 K/mm3 (0.00-0.10); IMMATURE GRAN PERCENT AUTO 1 % (0-1); LYMPHOCYTES ABSOLUTE AUTO 1.27 K/mm3 (0.84-5.20); LYMPHOCYTES PERCENT AUTO 21 % (21-46); MONOCYTES ABSOLUTE AUTO 0.49 K/mm3 (0.16-1.47); MONOCYTES PERCENT AUTO 8 % (4-13); Mean Corpuscular HGB 36.2 pg (26.0-34.0); Mean Corpuscular Volume 110 fL (80-100); Mean Platelet Volume 11.1 fL (9.1-12.4); NEUTROPHILS PERCENT AUTO 69 % (41-73); Platelet Count 233 K/mm3 (150-400); RDW Coefficient Variation 16.1 % (11.7-14.2); RDW Standard Deviation 64.6 fL (35.1-46.3); Red Blood Cell Count 4.03 M/mm3 (4.30-5.90); White Blood Cell Count 6.11 K/mm3 (4.00-11.30)
[2024-04-29 21:29] LABS: International Normalized Ratio 2.52; Prothrombin Time Results 25.2 Sec (9.7-11.5)
[2024-04-29 23:09] VITALS: BP 112/64
== END 2024-04-29 23:09 | disposition home or self-care (01) ==
LOC: ER 19:33
PROVIDERS: Emergency Medicine
DX: S09.90XA Unspecified injury of head, initial encounter (principal); S79.911A Unspecified injury of right hip, initial encounter; E03.9 Hypothyroidism, unspecified; C95.90 Leukemia, unspecified not having achieved remission; I48.92 Unspecified atrial flutter; W18.30XA Fall on same level, unspecified, initial encounter; Y92.199 Unspecified place in other specified residential institution as the place of occurrence of the external cause; Z86.718 Personal history of other venous thrombosis and embolism; Z79.899 Other long term (current) drug therapy; Z79.01 Long term (current) use of anticoagulants; Z87.891 Personal history of nicotine dependence
CPT/HCPCS: 70450; 73502; 80048; 85025; 85610; 85730; 93005; 93010; 99285-25

== ENCOUNTER 2024-05-06 13:40 | Emergency (ER) | payer OTHER, MEDICARE ==
[~2024-05-06] VITALS: Ht 185.4 cm; Wt 94.3 kg
[2024-05-06] MEDS ORDERED: FentaNYL Citrate 50 MCG/ML 2 ML Injection IV ONE (14:25)
[2024-05-06] MEDS ORDERED: Ondansetron HCl 2 MG / ML 2ML Vial IV ONE (14:25)
[2024-05-06 16:00] VITALS: BP 112/72
[2024-05-06 16:34] LABS: BASOPHILS ABSOLUTE AUTO 0.02 K/mm3 (0.00-0.23); BASOPHILS PERCENT AUTO 0 % (0-2); EOSINOPHILS ABSOLUTE AUTO 0.09 K/mm3 (0.00-0.68); EOSINOPHILS PERCENT AUTO 2 % (0-6); Hematocrit 38.9 % (37.0-53.0); Hemoglobin 13.1 g/dL (13.5-17.5); IMMATURE GRAN ABSOLUTE AUTO 0.02 K/mm3 (0.00-0.10); IMMATURE GRAN PERCENT AUTO 0 % (0-1); LYMPHOCYTES ABSOLUTE AUTO 1.39 K/mm3 (0.84-5.20); LYMPHOCYTES PERCENT AUTO 26 % (21-46); MONOCYTES ABSOLUTE AUTO 0.52 K/mm3 (0.16-1.47); MONOCYTES PERCENT AUTO 10 % (4-13); Mean Corpuscular HGB 36.7 pg (26.0-34.0); Mean Corpuscular HGB Conc 33.7 g/dL (31.5-36.5); Mean Corpuscular Volume 109 fL (80-100); Mean Platelet Volume 11.3 fL (9.1-12.4); NEUTROPHILS ABSOLUTE AUTO 3.22 K/mm3 (1.96-9.15); NEUTROPHILS PERCENT AUTO 61 % (41-73); Platelet Count 211 K/mm3 (150-400); RDW Coefficient Variation 16.9 % (11.7-14.2); RDW Standard Deviation 66.6 fL (35.1-46.3); Red Blood Cell Count 3.57 M/mm3 (4.30-5.90); White Blood Cell Count 5.26 K/mm3 (4.00-11.30)
[2024-05-06] MEDS ORDERED: CODACE30 PO (16:47)
[2024-05-06 16:52] LABS: Albumin, Blood 2.7 g/dL (3.4-5.0); Albumin/Globulin Ratio 0.6 (0.8-1.8); Bilirubin, Total 0.5 mg/dL (0.1-1.0); Bun/Creatinine Ratio 32.3 (12.0-20.0); Calcium, Blood 8.3 mg/dL (8.5-10.1); Creatinine, Blood 1.64 mg/dL (0.60-1.20); Globulin, Blood 4.8 g/dL (2.2-4.0); Potassium, Blood 4.1 mmol/L (3.5-5.5); Total Protein, Blood 7.5 g/dL (6.4-8.2)
== END 2024-05-06 18:55 | disposition home or self-care (01) ==
LOC: ER 13:40
PROVIDERS: Emergency Medicine
DX: S30.0XXA Contusion of lower back and pelvis, initial encounter (principal); M54.10 Radiculopathy, site unspecified; E03.9 Hypothyroidism, unspecified; W01.0XXA Fall on same level from slipping, tripping and stumbling without subsequent striking against object, initial encounter; Z87.891 Personal history of nicotine dependence; Z79.01 Long term (current) use of anticoagulants; Z79.899 Other long term (current) drug therapy
CPT/HCPCS: 72131; 72192; 80053; 85025; 96374; 96375; 99284-25; J2405; J3010

== ENCOUNTER 2024-05-15 12:27 | Emergency (ER) | payer MEDICARE, OTHER ==
[~2024-05-15] VITALS: Ht 188 cm; Wt 93.0 kg
[~2024-05-15 12:27] MED LIST changes: +CODACE30 PO
[2024-05-15 12:57] LABS: BASOPHILS ABSOLUTE AUTO 0.02 K/mm3 (0.00-0.23); BASOPHILS PERCENT AUTO 0 % (0-2); EOSINOPHILS ABSOLUTE AUTO 0.03 K/mm3 (0.00-0.68); EOSINOPHILS PERCENT AUTO 1 % (0-6); Hematocrit 36.3 % (37.0-53.0); Hemoglobin 11.9 g/dL (13.5-17.5); IMMATURE GRAN ABSOLUTE AUTO 0.09 K/mm3 (0.00-0.10); IMMATURE GRAN PERCENT AUTO 2 % (0-1); LYMPHOCYTES ABSOLUTE AUTO 0.87 K/mm3 (0.84-5.20); LYMPHOCYTES PERCENT AUTO 15 % (21-46); MONOCYTES ABSOLUTE AUTO 0.55 K/mm3 (0.16-1.47); MONOCYTES PERCENT AUTO 10 % (4-13); Mean Corpuscular HGB 36.5 pg (26.0-34.0); Mean Corpuscular HGB Conc 32.8 g/dL (31.5-36.5); Mean Corpuscular Volume 111 fL (80-100); Mean Platelet Volume 11.3 fL (9.1-12.4); NEUTROPHILS ABSOLUTE AUTO 4.16 K/mm3 (1.96-9.15); NEUTROPHILS PERCENT AUTO 73 % (41-73); Platelet Count 202 K/mm3 (150-400); RDW Coefficient Variation 17.9 % (11.7-14.2); Red Blood Cell Count 3.26 M/mm3 (4.30-5.90); White Blood Cell Count 5.72 K/mm3 (4.00-11.30)
[2024-05-15 13:09] LABS: Albumin, Blood 2.8 g/dL (3.4-5.0); Albumin/Globulin Ratio 0.6 (0.8-1.8); Bilirubin, Total 0.6 mg/dL (0.1-1.0); Bun/Creatinine Ratio 31.1 (12.0-20.0); Calcium, Blood 8.6 mg/dL (8.5-10.1); Creatinine, Blood 1.61 mg/dL (0.60-1.20); Globulin, Blood 4.6 g/dL (2.2-4.0); Potassium, Blood 4.7 mmol/L (3.5-5.5); Total Protein, Blood 7.4 g/dL (6.4-8.2)
[2024-05-15 13:11] LABS: International Normalized Ratio 1.69; Prothrombin Time Results 17.4 Sec (9.7-11.5)
[2024-05-15 13:56] VITALS: BP 108/57
== END 2024-05-15 14:10 | disposition home or self-care (01) ==
LOC: ER 12:27
PROVIDERS: Emergency Medicine
DX: R55 Syncope and collapse (principal); R53.1 Weakness; I95.9 Hypotension, unspecified
CPT/HCPCS: 80053; 84484; 85025; 85610; 93005; 93010; 99284-25